=== PATIENT | female | born 1975 | race Caucasian/White ===

== ENCOUNTER 2016-12-18 11:45 | Outpatient (CLI) | payer OTHER ==
[2016-12-18] MEDS ORDERED: IOPAMIDOL-300 50 ML VIAL PO ONE (13:22)
[2016-12-18] MEDS ORDERED: IOPAMIDOL-300 100 ML VIAL IVP ONE (13:22)
--- NOTE | 2016-12-19 12:18 | CT Report ---
CT ABDOMEN AND PELVIS WITH AND WITHOUT CONTRAST: 12/18/2016 CLINICAL INDICATION: Followup splenic cyst. COMPARISON: 09/21/2015, 02/10/2015 TECHNIQUE: Axial CT images of the abdomen and pelvis were obtained prior to and following 100 mL of Isovue-300 intravenously. Oral contrast was also administered. In accordance with CT protocol optimization, one or more of the following dose reduction techniques w ere utilized for this exam: automated exposure control, adjustment of mA and/or KV based on patient size, or use of iterative reconstructive technique. FINDINGS: Limited evaluation of the lung bases is unremarkable. Abdomen: The 7-cm rim-calcified splenic cyst is stable. No new splenic lesion is seen. The liver, pancreas, kidneys, and adrenal glands are unremarkable. The gallbladder is not dilated. No bowel di latation, free gas, or free fluid is present. No abdominal adenopathy is seen. Pelvis: The pelvic organs appear unremarkable. Scattered diverticulosis is seen, without CT evidenc e of diverticulitis. No pelvic adenopathy or free fluid is present. Osseous structures demonstrate mild degenerative changes. IMPRESSION: STABLE SPLENIC CYST. NO SIGNIFICANT INTERVAL CHANGE. JOB #: [id number] EXT JOB #:[id number]
== END 2016-12-18 11:46 | disposition home or self-care (01) ==
LOC: DI 11:45
PROVIDERS: ATTEND Nurse Practitioner Family
DX: D73.4 Cyst of spleen (principal)
CPT/HCPCS: 74178; Q9967

== ENCOUNTER 2017-02-06 14:25 | Outpatient (CLI) | payer OTHER ==
[2017-02-06 15:03] LABS: BASOPHILS % (AUTO) 0.5 %; EOSINOPHILS # (AUTO) 0.2 10^3/uL (0.0-0.7); EOSINOPHILS % (AUTO) 2.1 %; HCT - HEMATOCRIT 40.3 % (37.0-47.0); HGB - HEMOGLOBIN 13.7 g/dL (12.0-16.0); LYMPHOCYTES # (AUTO) 2.2 10^3/uL (1.5-3.5); LYMPHOCYTES % (AUTO) 30.6 %; MEAN CORPUSCULAR HEMOGLOBIN 31.4 pg (27.0-31.0); MEAN CORPUSCULAR VOLUME 92.4 fL (81.0-99.0); MEAN PLATELET VOLUME 8.2 fL (7.9-10.8); MONOCYTES # (AUTO) 0.5 10^3/uL (0.0-1.0); MONOCYTES % (AUTO) 6.2 %; NEUTROPHILS # (AUTO) 4.4 10^3/uL (1.5-6.6); NEUTROPHILS % (AUTO) 60.6 %; NUCLEATED RED BLOOD CELLS AUTO 0.1 /100WBC; RED BLOOD COUNT 4.37 10^6/uL (4.20-5.40); UNCORRECTED WHITE BLOOD COUNT 7.3 x10^3/uL; WHITE BLOOD COUNT 7.3 x10^3/uL (4.8-10.8)
[2017-02-06 15:19] LABS: CALCIUM 9.5 mg/dL (8.5-10.3); CREATININE 0.9 mg/dL (0.4-1.0)
== END 2017-02-06 14:26 | disposition home or self-care (01) ==
LOC: LAB 14:25
PROVIDERS: ATTEND Surgery
DX: D73.4 Cyst of spleen (principal)
CPT/HCPCS: 36415; 80048; 85025

== ENCOUNTER 2017-02-08 13:04 | Outpatient (CLI) | payer OTHER | END 2017-02-08 13:05 | disposition home or self-care (01) | LOC: LAB 13:04 | PROVIDERS: ATTEND Surgery | DX: Z01.812 Encounter for preprocedural laboratory examination (principal); D73.4 Cyst of spleen | CPT/HCPCS: 86850; 86900; 86901 ==

== ENCOUNTER 2017-02-10 06:11 | Inpatient (IN) | payer OTHER ==
[2017-02-10] MEDS ORDERED: ceFAZolin 2 GM/50 ML 50 ML IV ONE (06:27)
[2017-02-10] MEDS ORDERED: LACTATED RINGERS 1,000 ML IV ONE ×3 (06:30→09:27)
[2017-02-10 06:48] LABS: HCG UR QUAL NEGATIVE
[2017-02-10] MEDS ORDERED: ACETAMINOPHEN 1,000 MG/100 ML VIAL IV ONE (08:00)
[2017-02-10] MEDS ORDERED: MIDAZOLAM 2 MG/2 ML VIAL IVP ONE (08:00)
[2017-02-10] MEDS ORDERED: PROPOFOL 200 MG/20 ML VIAL IVP ONE (08:00)
[2017-02-10] MEDS ORDERED: DEXAMETHASONE 4 MG/ML VIAL IVP ONE (08:00)
[2017-02-10] MEDS ORDERED: LIDOCAINE 2% 10 ML MDV SUBQ ONE (08:00)
[2017-02-10] MEDS ORDERED: ROPIVACAINE 0.5% PF 20 ML AMPULE EP ONE (08:00)
[2017-02-10] MEDS ORDERED: ROCURONIUM 50 MG/5 ML VIAL IVP ONE (08:00)
[2017-02-10] MEDS ORDERED: SUCCINYLCHOLINE 200 MG/10 ML VIAL IVP ONE (08:00)
[2017-02-10] MEDS ORDERED: fentaNYL 100 MCG/2 ML VIAL IVP ONE (08:00)
[2017-02-10] MEDS ORDERED: ONDANSETRON 4 MG/2 ML VIAL IVP ONE (08:00)
[2017-02-10] MEDS ORDERED: BUPIVACAINE 0.5%-EPI 1:200000 PF 30 ML VIAL SUBQ ONE ×2 (08:33→11:11)
[2017-02-10] MEDS ORDERED: fent/BUPIV 2 MCG/0.125% 250 ML EP ONE (09:07)
[2017-02-10] MEDS ORDERED: SODIUM CHLORIDE FLUSH 0.9% 10 ML SYRINGE IVP PRN (11:28)
--- NOTE | 2017-02-10 11:41 | OPERATIVE REPORT ---
Operative Report - General Procedure Date: 02/10/17 Planned Procedure: laparoscopic fenestration of splenic cyst Pre-Op Diagnosis: splenic cyst Post Op Diagnosis: splenic cyst - Procedure Note Primary Surgeon: Jane Secondary Surgeon: Michael Anesthesia Provider: Mackenzie Anesthesia Technique: Epidural, General ET tube Pathology: splenic cyst wall culture and sensitivity ova and parasites Estimated Blood Loss (in cc): 150 Drain/Tube Type: Kael drain (in splenic cyst) Complications: none
[2017-02-10 11:48] LABS: BASOPHILS # (AUTO) 0.1 10^3/uL (0.0-0.1); BASOPHILS % (AUTO) 0.3 %; EOSINOPHILS # (AUTO) 0.1 10^3/uL (0.0-0.7); EOSINOPHILS % (AUTO) 0.4 %; HCT - HEMATOCRIT 33.3 % (37.0-47.0); HGB - HEMOGLOBIN 11.1 g/dL (12.0-16.0); LYMPHOCYTES # (AUTO) 2.2 10^3/uL (1.5-3.5); LYMPHOCYTES % (AUTO) 12.5 %; MEAN CORPUSCULAR HEMOGLOBIN 30.9 pg (27.0-31.0); MEAN CORPUSCULAR HGB CONC 33.4 g/dL (32.0-36.0); MEAN CORPUSCULAR VOLUME 92.4 fL (81.0-99.0); MEAN PLATELET VOLUME 8.3 fL (7.9-10.8); MONOCYTES # (AUTO) 0.3 10^3/uL (0.0-1.0); NEUTROPHILS # (AUTO) 14.6 10^3/uL (1.5-6.6); NEUTROPHILS % (AUTO) 84.8 %; RED CELL DISTRIBUTION WIDTH 12.7 % (12.0-15.0); UNCORRECTED WHITE BLOOD COUNT 17.3 x10^3/uL; WHITE BLOOD COUNT 17.3 x10^3/uL (4.8-10.8)
[2017-02-10] MEDS: ONDANSETRON 4 MG/2 ML VIAL IVP PRN ×2 (11:55→20:02)
[2017-02-10] MEDS ORDERED: CYCLOBENZAPRINE 10 MG TABLET PO PRN (12:00)
[2017-02-10] MEDS ORDERED: METOCLOPRAMIDE 10 MG/2 ML VIAL ONE (12:11)
[2017-02-10] MEDS ORDERED: oxyCOD/ACETAMIN 5 MG/325 MG TABLET PO PRN (13:02)
--- NOTE | 2017-02-10 14:39 | OPERATIVE REPORT ---
DATE OF SURGERY: 02/10/2017 00:00:00 PREOPERATIVE DIAGNOSIS: Splenic cyst POSTOPERATIVE DIAGNOSIS: splenic cyst NAME OF PROCEDURE: Laparoscopic fenestration of splenic cyst SURGEON: Fidelina Lara MD CO-SURGEON: Juan C Rodriguez MD ANESTHESIA: Willam Mann CRNA INDICATIONS: This is a 41-year-old female who was diagnosed with a large 7 cm splenic cyst in 2014 after complaining of left upper quadrant pain. A percutaneous drainage procedure was performed at an outside hospital with minimal drainage of fluid and nonresolution of her symptoms and persistent cyst on CT scan. She has had multiple followup CT scans, which have demonstrated a stable 7 cm cyst; however, she continues to have left upper quadrant pain radiating to her left side and left upper back, which is moderate to severe in nature. She is here today for elective laparoscopic fenestration of splenic cyst. Prior to the procedure she received appropriate vaccinations in preparation for possible splenectomy. FINDINGS: After obtaining informed consent from the patient, she was brought into the operating room and positioned on the table in the right lateral decubitus position, taking note of pressure points. She was intubated by anesthesia. She was administered 2 g of Ancef. Type and cross was performed and 2 units of packed cells as well as 2 units of platelets were on hold in the blood bank. A Escudero catheter was inserted. She was then prepped and draped in the usual sterile fashion, and a timeout was taken according to protocol. Despite cleaning the umbilicus prior to prepping there was a large amount of debris in the umbilicus. This was removed with the mosquito device and the umbilicus was again prepped and the surgeon's gloves were changed. A supraumbilical 1 cm incision was then created and deepened down towards the umbilical stalk. An umbilical hernia was noted at this site and this was circumferentially dissected from the surrounding fascia. The fascia was bluntly entered with a tonsil clamp, and Scott port was then placed, and the abdominal cavity insufflated. An additional 5 mm port was placed in the left epigastric region and an additional 5 mm port placed in the midline epigastric region. The large spleen and splenic cyst were identified. The cyst was located in the superior posteromedial position. There were some filmy adhesions of the omentum to the left lateral abdominal wall, and these were taken down with the LigaSure device. Left lobe of the liver attachments to the diaphragm were also taken down with the LigaSure device to adequately expose the spleen. The patient was then positioned in reverse Trendelenburg with the left side rotated up. The splenic cyst was fully exposed. At this point, a drainage needle was placed into the center of the splenic cyst and attached to a Luki trap. The cyst was drained and fluid was collected to send for cultures and sensitivity as well as ova and parasite and cytology. Approximately 150 mL of purulent-appearing fluid was drained from the splenic cyst. The cyst was then carefully opened with the ligasure. In order to retract the slpeen an additional 12 mm port was placed in the left lateral subcostal region. It was somewhat difficult to get into the cystic cavity because it was noted to be very calcified and thickened. The anterior layer of the cyst was initially opened and cystic fluid drained. With some difficulty I eventually was able to enter into the full thickness of the cystic cavity using the hook device. The LigaSure was then utilized to transect portions of the splenic cyst towards the splenic parenchyma thereby creating a large defect in the splenic cyst. There was some bleeding during this part of the procedure, and this was controlled with electrocautery. A persistent area in the inferior aspect of the splenic cystic cavity continued to ooze slightly and the Surgicel was placed and pressure was held for a period of time. Upon removal of this Surgicel, the bleeding was mostly controlled but a very small amount of oozing was persistent. After complete evacuation of all the cystic contents and irrigation of the cyst cavity and the abdominal cavity, adequate visualization of the splenic cyst wall was achieved. Tisseel hemostatic agent was then placed in the areas of slight oozing around the cystic wall. Hemostasis was achieved at this point. A tongue of omentum was then mobilized and placed into the splenic cyst. This was sutured into place with 2 interrupted sutures of 0 Ethibond. The very superior aspect of the cystic cavity was left open for placement of a Kael drain into the cystic cavity. This was brought out through the lateral abdominal port site and was sutured into place. At this point the patient was leveled and the peritoneal cavity inspected for persistent hemoperitoneum and this was evacuated with the suction device. The abdominal cavity was then allowed to desufflate and all ports were removed. The umbilical hernia was then repaired by excising the hernia sac completely from the surrounding fascia and reducing the hernia back into the abdominal cavity. The umbilicus was then closed with an interrupted Vicryl suture as well as a [id number] 0 Vicryl suture to completely close the umbilical defect. The skin incisions were closed with 4-0 Monocryl. The Kael drain was sutured into place with 3-0 nylon. Dermabond was applied and a drain dressing applied. 30 mL of local anesthestic was utilized. ESTIMATED BLOOD LOSS: 150 mL. URINE OUTPUT: 150 mL. COMPLICATIONS: None. SPECIMEN: Cystic fluid and splenic cystic wall. JOB #: [id number] EXT JOB #:[id number] ASUNCION
[2017-02-10] MEDS ORDERED: PIPERACILLIN/TAZOBACTAM 3.375 GM in SODIUM CHLORIDE 0.9% MINIBAG 100 ML IV SCH (15:00)
[2017-02-10] MEDS ORDERED: ALBUTEROL NEB 2.5 MG/3 ML INH PRN (15:01)
[2017-02-10] MEDS: SODIUM CHLORIDE FLUSH 0.9% 10 ML SYRINGE IVP SCH ×2 (15:10→23:01)
[2017-02-10] MEDS: LACTATED RINGERS 1,000 ML IV SCH (15:13)
[2017-02-10] MEDS: ACETAMINOPHEN 1,000 MG/100 ML 100 ML IV SCH ×2 (15:14→20:02)
[2017-02-10] MEDS ORDERED: fent/BUPIV 2 MCG/0.125% 250 ML EP PRN (15:55)
[2017-02-10] MEDS ORDERED: ONDANSETRON 4 MG/2 ML VIAL IVP PRN (15:55)
[2017-02-10] MEDS ORDERED: diphenhydrAMINE INJ 50 MG/ML VIAL IV PRN (15:55)
[2017-02-10] MEDS ORDERED: NALBUPHINE 20 MG/ML AMP IVP PRN (15:55)
[2017-02-10] MEDS ORDERED: METOCLOPRAMIDE 10 MG/2 ML VIAL IVP PRN (15:55)
[2017-02-10] MEDS: metroNIDAZOLE 500 MG/100 ML 100 ML IV SCH ×2 (16:10→23:01)
[2017-02-11] MEDS: PIPERACILLIN/TAZOBACTAM 3.375 GM in SODIUM CHLORIDE 0.9% MINIBAG 100 ML IV SCH ×3 (00:52→12:28)
[2017-02-11] MEDS: ACETAMINOPHEN 1,000 MG/100 ML 100 ML IV SCH ×4 (02:05→13:14)
[2017-02-11] MEDS ORDERED: SODIUM CHLORIDE 0.9% 1,000 ML IV ONE (03:46)
[2017-02-11] MEDS: LACTATED RINGERS 1,000 ML IV SCH ×2 (04:08→08:58)
[2017-02-11] MEDS ORDERED: LORazepam 2 MG/ML SYRINGE IVP PRN (04:47)
[2017-02-11] MEDS ORDERED: LORazepam 2 MG/ML SYRINGE IVP SCH (05:00)
[2017-02-11] MEDS: metroNIDAZOLE 500 MG/100 ML 100 ML IV SCH ×2 (05:54→14:48)
[2017-02-11 06:02] LABS: BASOPHILS % (AUTO) 0.2 %; HCT - HEMATOCRIT 29.3 % (37.0-47.0); LYMPHOCYTES # (AUTO) 1.1 10^3/uL (1.5-3.5); LYMPHOCYTES % (AUTO) 11.4 %; MEAN CORPUSCULAR HEMOGLOBIN 32.1 pg (27.0-31.0); MEAN CORPUSCULAR HGB CONC 34.1 g/dL (32.0-36.0); MEAN CORPUSCULAR VOLUME 94.2 fL (81.0-99.0); MEAN PLATELET VOLUME 8.5 fL (7.9-10.8); MONOCYTES # (AUTO) 0.7 10^3/uL (0.0-1.0); MONOCYTES % (AUTO) 7.4 %; NEUTROPHILS # (AUTO) 7.7 10^3/uL (1.5-6.6); RED BLOOD COUNT 3.11 10^6/uL (4.20-5.40); RED CELL DISTRIBUTION WIDTH 13.2 % (12.0-15.0); UNCORRECTED WHITE BLOOD COUNT 9.5 x10^3/uL; WHITE BLOOD COUNT 9.5 x10^3/uL (4.8-10.8)
[2017-02-11 06:16] LABS: CALCIUM 7.9 mg/dL (8.5-10.3); CREATININE 0.8 mg/dL (0.4-1.0); POTASSIUM 3.7 mmol/L (3.5-5.0)
[2017-02-11] MEDS: SODIUM CHLORIDE FLUSH 0.9% 10 ML SYRINGE IVP SCH ×2 (06:29→14:53)
[2017-02-11] MEDS ORDERED: PANTOPRAZOLE 40 MG VIAL IVP SCH (07:00)
[2017-02-11] MEDS: ONDANSETRON 4 MG/2 ML VIAL IVP PRN ×2 (07:41→13:12)
--- NOTE | 2017-02-11 08:46 | PROVIDER PROGRESS NOTE ---
Subjective - General Admit Date: 02/10/17 Procedure Date: 02/10/17 Post Op Days: 1 Procedure Performed: laparoscopic fenestration of splenic cyst - Review of Systems Wound/Incisions: positive: Healing well Drain Type: sunita Drain Output Description: 140 cc serosanguinous - Other Other Information/Narrative: Patient became very anxious overnight due to numbness in her legs secondary to epidural. She had a panic attack and ativan was given. She feels a bit distended today but denies nausea. Objective - Patient Data Reviewed Vital Signs: Yes Vital Signs: Vital Signs x48h Temp Pulse Pulse Resp BP BP Pulse Ox 02/11/17 07:58 36.7 C 88 18 111/60 93 02/11/17 07:45 76 16 02/11/17 05:37 36.5 C 76 16 121/72 97 02/11/17 02:01 36.6 C 70 16 108/63 100 Intake & Output: Intake and Output Totals x24h 02/09/17 02/10/17 02/11/17 23:59 23:59 23:59 Intake Total 3599 Output Total 270 1020 Balance 3329 -1020 - Lab Results Lab Results: 02/11/17 05:18 02/11/17 05:18 Other Lab Results: Lab Results x24hrs 02/11/17 02/11/17 02/10/17 Range/Units 05:18 05:18 11:44 WBC 9.5 17.3 H (4.8-10.8) x10^3/uL RBC 3.11 L 3.60 L (4.20-5.40) 10^6/uL Hgb 10.0 L 11.1 L (12.0-16.0) g/dL Hct 29.3 L 33.3 L (37.0-47.0) % MCV 94.2 92.4 (81.0-99.0) fL MCH 32.1 H 30.9 (27.0-31.0) pg MCHC 34.1 33.4 (32.0-36.0) g/dL RDW 13.2 12.7 (12.0-15.0) % Plt Count 175 267 (130-450) 10^3/uL MPV 8.5 8.3 (7.9-10.8) fL Neut # 7.7 H 14.6 H (1.5-6.6) 10^3/uL Lymph # 1.1 L 2.2 (1.5-3.5) 10^3/uL Eagle # 0.7 0.3 (0.0-1.0) 10^3/uL Eos # 0.0 0.1 (0.0-0.7) 10^3/uL Baso # 0.0 0.1 (0.0-0.1) 10^3/uL Absolute Nucleated RBC 0.00 0.00 x10^3/uL Nucleated RBCs 0.0 0.0 /100WBC Sodium 135 (135-145) mmol/L Potassium 3.7 (3.5-5.0) mmol/L Chloride 103 (101-111) mmol/L Carbon Dioxide 23 (21-32) mmol/L Anion Gap 9.0 (6-13) BUN 9 (6-20) mg/dL Creatinine 0.8 (0.4-1.0) mg/dL Estimated GFR (MDRD) 78 L (>89) Glucose 132 H (70-100) mg/dL Calcium 7.9 L (8.5-10.3) mg/dL Blood Type Antibody Screen Crossmatch IS Only 02/08/17 Range/Units 13:15 WBC (4.8-10.8) x10^3/uL RBC (4.20-5.40) 10^6/uL Hgb (12.0-16.0) g/dL Hct (37.0-47.0) % MCV (81.0-99.0) fL MCH (27.0-31.0) pg MCHC (32.0-36.0) g/dL RDW (12.0-15.0) % Plt Count (130-450) 10^3/uL MPV (7.9-10.8) fL Neut # (1.5-6.6) 10^3/uL Lymph # (1.5-3.5) 10^3/uL Eagle # (0.0-1.0) 10^3/uL Eos # (0.0-0.7) 10^3/uL Baso # (0.0-0.1) 10^3/uL Absolute Nucleated RBC x10^3/uL Nucleated RBCs /100WBC Sodium (135-145) mmol/L Potassium (3.5-5.0) mmol/L Chloride (101-111) mmol/L Carbon Dioxide (21-32) mmol/L Anion Gap (6-13) BUN (6-20) mg/dL Creatinine (0.4-1.0) mg/dL Estimated GFR (MDRD) (>89) Glucose (70-100) mg/dL Calcium (8.5-10.3) mg/dL Blood Type Cancelled Antibody Screen Cancelled Crossmatch IS Only See Detail - Current Medications Current Medications: Current Medications Generic Name Dose Route Start Last Admin Trade Name Freq PRN Reason Stop Dose Admin Metronidazole 100 mls @ 100 mls/hr 02/10/17 14:00 02/11/17 05:54 Flagyl 500 Mg/100 Ml IV 100 mls/hr Q8HR KIT Administration Acetaminophen 100 mls @ 400 mls/hr 02/10/17 12:00 02/11/17 02:05 Ofirmev IV 400 mls/hr Q6H KIT Administration Fentanyl/Bupivacaine/Sodium Chlor 250 mls @ 10 mls/hr 02/10/17 15:55 02/11/17 07:49 Fent/Bupiv 2 Mcg/0.125% EP 10 mls/hr .Q25H PRN Administration PAIN Protocol Piperacillin Sod/Tazobactam 100 mls @ 200 mls/hr 02/11/17 00:00 02/11/17 06:56 Sod 3.375 gm/ Sodium Chloride IV 200 mls/hr Q6HR KIT Administration Ondansetron HCl 4 mg 02/10/17 11:28 02/11/17 07:41 Zofran Inj IVP 4 mg Q6H PRN Administration Nausea / Vomiting Pantoprazole Sodium 40 mg 02/11/17 07:00 02/11/17 06:07 Protonix IVP 40 mg QDAC KIT Administration Sodium Chloride 10 ml 02/10/17 14:00 02/11/17 06:29 Normal Saline Flush 0.9% IVP Not Given Q8HR KIT - Physical Exam Wound/Incisions: positive: Healing well, No drainage General Appearance: positive: No acute distress Respiratory: positive: No respiratory distress Cardiovascular: positive: Regular rate & rhythm Abdomen: positive: Other (soft, slightly distended. Sunita drain in place with serosanguinous drainage) Extremities: positive: No pedal edema Neurologic/Psychiatric: positive: Oriented x3 Impression/Plan - Problem List Problem List: s/p laparoscopic splenic fenestration POD 1 - DC epidural. Percocet for pain control - once epidural has worn off ambulate - advance to regular diet. Informed patient to take this slowly. - GINGER teaching for plan to DC to home with GINGER in place. - Con't antibiotics until cultures back. Will plan to DC with antibiotics for 5 days due to purulent appearance of cyst contents
[2017-02-11] MEDS ORDERED: DOCUSATE SODIUM 250 MG CAPSULE PO SCH (09:00)
[2017-02-11] MEDS ORDERED: FLUoxetine 10 MG CAPSULE PO SCH (09:00)
[2017-02-11] MEDS ORDERED: POLYETHYLENE GLYCOL 3350 17 GM PACKET PO SCH (09:00)
[2017-02-11] MEDS: oxyCOD/ACETAMIN 5 MG/325 MG TABLET PO PRN ×3 (09:21→16:56)
--- NOTE | 2017-02-11 12:19 | Discharge Plan ---
Discharge Plan Disposition: 01 Home, Self Care Condition: Good Prescriptions: Metronidazole [Flagyl] 500 mg PO TID #15 tablet Cephalexin [Keflex] 500 mg PO BID #10 capsule Ondansetron Odt [Zofran Odt] 4 mg TL Q6H PRN #10 tablet PRN Reason: Nausea / Vomiting Activity Restrictions: Additional Comments (no strenusous activity 2 weeks) Shower Restrictions: Yes (no tub bathing one week) Driving Restrictions: Yes (not while on narcotics) Instruction Topics: Ondansetron tablets, Docusate capsules, Metronidazole tablets or capsules, Cephalexin tablets or capsules, Acetaminophen Oxycodone tablets, Tube Dante Cote Drainage Care Additional Instructions or Follow Up instructions: No strenuous activity or lifting > 10 lbs for 2 weeks. No tub bathing 1 week. OK to shower and get incisions wet. Pat to dry. Regular diet as tolerated. Take stool softeners while on narcotics. You have been prescribed 5 days of antibiotics. Take these until completed. Call Dr. Lara for worsening abdominal pain, redness around incision or drain, drainage of more than 200cc per day from drain fever or chills. Monitor and record GINGER drain output daily. place dry gauze around drain and changed daily. It is OK to get drain wet in shower. Keep incisions clean and dry. It is OK to get incisions wet in shower. No Smoking: If you smoke, Please STOP! Call for help. Follow-up with: Ana Laura Toney ARNP [Primary Care Provider] - ANAND LARA MD [Provider Admit Priv/Credential] - 1 Week
[2017-02-11 15:49] VITALS: BP 129/71
--- NOTE | 2017-02-12 12:30 | DISCHARGE SUMMARY ---
DATE OF ADMISSION: 02/10/2017 DATE OF DISCHARGE: 02/11/2017 REASON FOR ADMISSION: Status post laparoscopic fenestration of splenic cyst. HOSPITAL COURSE: This is a 41-year-old female who had a 7 cm splenic cyst that was painful and presented for elective laparoscopic fenestration of the splenic cyst. The surgery went without complications. She was transferred to the floor postoperatively with a GINGER drain in place and an epidural catheter in place for pain control. She was also placed on IV antibiotics given that the cyst was noted to contain purulent-appearing fluid and there was concern for an ensuing infection. She was started on clear liquids on postoperative day 0 and encouraged to ambulate. On the night of postoperative day 0 she was unable to feel her legs secondary to her epidural and the following morning this was completely stopped. She eventually was able to get out of bed and walk and was able to urinate on her own. She was advanced to a regular diet. Her epidural was removed. Her H and H was noted to be stable postoperatively. Her GINGER drain was draining serosanguineous fluid and her vital signs remained stable. She was stable for discharge on postoperative day 1 with her GINGER drain in place. She was instructed on how to care for her GINGER drain as well as how to empty and monitor the drainage amount. She was instructed to follow up with myself, Dr. Lara , in one week for possible drain removal if the output was low enough. She was instructed to call sooner should she develop any fevers, chills, redness around her incision or her GINGER site, or increasing lightheadedness or fatigue. She was discharged with prescriptions for pain control medications, Colace, Keflex and Flagyl for 5 days and Zofran for nausea which was associated with the pain medications. PHYSICAL EXAMINATION ON DISCHARGE: VITAL SIGNS: 36.7 temperature, heart rate of 96, respiratory rate of 16, O2 saturation 92% on room air. Blood pressure 129/71. GENERAL: She was awake, alert, oriented x3 in no acute distress. She was of average build. CARDIOVASCULAR: Regular rate and rhythm. CHEST: Clear to auscultation bilaterally with no rhonchi or wheezing. ABDOMEN: Soft, and nondistended. Her incisions are clean, dry and intact. GINGER is in place with serosanguineous drainage and is mildly tender to palpation. EXTREMITIES: Are nonedematous. JOB #: [id number] EXT JOB #:[id number] ASUNCION
== END 2017-02-11 19:00 | disposition home or self-care (01) | DRG 983 ==
LOC: SDS 06:11 → MS3 11:28 → SDS 19:27
PROVIDERS: ADMIT Surgery; ATTEND Surgery
PROC: 0FBG4ZZ Excision of Pancreas, Percutaneous Endoscopic Approach (ICD-10-PCS; principal; 2017-02-10 07:30)
DX: D73.4 Cyst of spleen (principal); I10 Essential (primary) hypertension; F41.0 Panic disorder [episodic paroxysmal anxiety]; F32.9 Major depressive disorder, single episode, unspecified; Z79.51 Long term (current) use of inhaled steroids; Z79.899 Other long term (current) drug therapy
CPT/HCPCS: 36415; 51701; 80048; 81025; 85025; 86850; 86900; 86901; 86920; 87070; 87205; 88108; 88305

== ENCOUNTER 2019-01-21 11:27 | Outpatient (CLI) | payer OTHER ==
--- NOTE | 2019-01-21 19:00 | Ultrasound Report ---
Reason: ABDOMINAL PAIN, LUQ Procedure Date: 01/21/2019 Accession Number: [id number] / [id number] Procedure: US - Abdomen Limited CPT Code: FULL RESULT: EXAM: ABDOMEN ULTRASOUND LIMITED, RUQ EXAM DATE: 01/21/2019 12:15 PM. CLINICAL HISTORY: ABDOMINAL PAIN, LUQ. COMPARISON: ABDOMEN/PELVIS W/WO 12/18/2016 1:19 PM. TECHNIQUE: Real-time scanning was performed with static images obtained. FINDINGS: Left Upper Quadrant: There is a heterogeneous/complex cystic, avascular lesion in the inferior splenic parenchyma measuring 5.1 x 2.9 x 4.5 cm. Similar cyst on previous CT scan measured 6.8 x 6.8 cm dated 12/18/2016. Overall interval reduction in size of the cyst. Sonographic tenderness elicited at the time of scanning. Splenic dimensions: 10.1 cm in long axis by 3.3 cm AP.. IMPRESSION: Heterogeneous complex cystic avascular lesion in inferior splenic parenchyma measuring 5.1 x 2.9 x 4.5 cm. Overall reduction in size since CT dated 12/18/2016. RADIA
== END 2019-01-21 11:28 | disposition home or self-care (01) ==
LOC: DI 11:27
PROVIDERS: ATTEND Registered Nurse
DX: R10.12 Left upper quadrant pain (principal); D73.4 Cyst of spleen
CPT/HCPCS: 76705

== ENCOUNTER 2019-04-02 07:30 | Inpatient (IN) | payer OTHER ==
[2019-04-09] MEDS ORDERED: LACTATED RINGERS 1,000 ML IV ONE ×2 (06:31→09:12)
[2019-04-09] MEDS ORDERED: CEFAZOLIN SODIUM IN 0.9 % NACL 2 GM/100 ML BAG IV ONE (06:38)
--- NOTE | 2019-04-09 07:11 | ANESTHESIA ---
Pre-Anesthesia VS, & Labs - Diagnosis Splenic cyst - Procedure Splenectomy Vital Signs: Temp Pulse Resp BP Pulse Ox 36.3 C L 78 14 142/67 H 99 04/09/19 06:43 04/09/19 06:43 04/09/19 06:43 04/09/19 06:43 04/09/19 06:43 Height 5 ft 7 in Weight (kg) 79.1 kg Body Mass Index 25.0 - NPO >8 hours - Is Patient ?: No - Lab Results Lab results reviewed: Yes Home Medications and Allergies Home Medications: Ambulatory Orders Beclomethasone Dipropionate [Qvar Redihaler (40 mcg)] 1 inh IH BID 04/07/19 Clindamycin Phosphate 1 applic TP BID 04/07/19 FLUoxetine [PROzac] 20 mg PO DAILY 04/07/19 l-Norgest/E.estradiol-E.estrad [Camrese 0.15-0.03-0.01 mg Tab] 1 each PO DAILY 04/07/19 Albuterol Sulfate [Ventolin Hfa] 1 puffs INH Q4HR PRN 05/24/15 Beclomethasone Dipropionate [Qvar Redihaler (40 mcg)] 1 inh IH BID 04/07/19 Clindamycin Phosphate 1 applic TP BID 04/07/19 FLUoxetine [PROzac] 20 mg PO DAILY 04/07/19 l-Norgest/E.estradiol-E.estrad [Camrese 0.15-0.03-0.01 mg Tab] 1 each PO DAILY 04/07/19 Allergies/Adverse Reactions: Allergies Allergy/AdvReac Type Severity Reaction Status Date / Time No Known Drug Allergies Allergy Verified 04/09/19 06:50 Anes History & Medical History - Anesthetic History Anesthesia Complications: reports: No previous complications Family history of Anesthesia Complications: Denies Family history of Malignant Hyperthermia: Denies - Medical History Cardiovascular: reports: None Pulmonary: reports: Asthma Gastrointestinal: reports: GERD Urinary: reports: None Neuro: reports: None Musculoskeletal: reports: None Endocrine/Autoimmune: reports: None Blood Disorders: reports: None Skin: reports: None Smoking Status: Never smoker Psychosocial: reports: No issues indicated Exam General: Alert, Oriented x3 Dental: WNL Mouth Opening: Greater than 4 Fingerbreadths Neck Mobility: Normal Mallampati classification: II Thyromental Distance: greater than 6 cm Respiratory: Lungs clear Cardiovascular: Regular rate, Normal S1, Normal S2 Mental/Cognitive Status: Alert/Oriented X3 Cognitive Status: Within normal limits Plan Anesthesia Type: General, Epidural Consent for Procedure(s) Verified and Reviewed: Yes Code Status: Attempt Resuscitation ASA classification: 2-Mild systemic disease Is this case an emergency?: No
[2019-04-09 07:21] LABS: HCG UR QUAL NEGATIVE
--- NOTE | 2019-04-09 08:26 | SURGERY HX AND PHYSICAL(T) ---
Surgical History & Physical - PMH/PSH/Social Hx Does the pt have a hx of MRSA?: No Neurological History: None Eyes, Ears, Nose, Throat: Chronic vision loss Cardiovascular: None Respiratory: Asthma Skin: None Endocrine/Autoimmune: None Gastrointestinal: GERD Urinary: None Musculoskeletal: None Blood Disorders: None Psychiatric: Depression, Anxiety, Panic attacks, Obsessive compulsive disorder Smoking Status: Never smoker Does the pt drink ETOH?: No Does the pt have substance abuse?: No - Home Meds and Allergies Home Medications: Albuterol Sulfate [Ventolin Hfa] 1 puffs INH Q4HR PRN 05/24/15 Beclomethasone Dipropionate [Qvar Redihaler (40 mcg)] 1 inh IH BID 04/07/19 Clindamycin Phosphate 1 applic TP BID 04/07/19 FLUoxetine [PROzac] 20 mg PO DAILY 04/07/19 l-Norgest/E.estradiol-E.estrad [Camrese 0.15-0.03-0.01 mg Tab] 1 each PO DAILY 04/07/19 Allergies/Adverse Reactions: Allergies Allergy/AdvReac Type Severity Reaction Status Date / Time No Known Drug Allergies Allergy Verified 04/09/19 06:50 - Vital Signs Heart Rate: 78 Blood Pressure: 142/67 Temperature: 36.3 C Respiratory Rate: 14 O2 Saturation: 99 Weight (kg): 79.1 kg Height: 1.7 m - Patient Review Patient Review: Problems were reviewed with the patient during this visit. Medications were reviewed with the patient during this visit. Allergies were reviewed this patient during this visit. Pertinent Tests Reviewed: All pertitent test for this patient were reviewed. - Assessment & Plan Assessment and Plan: This exceedingly pleasant 43-year-old female presents to [facility]'s home day care provider unit this morning for a splenectomy. The patient was initially seen by myself as well as Dr. Lara back couple of years ago for a splenic cyst which was symptomatic. In January 2017 Dr. Lara performed a D fenestration with me as the web assistant. The symptoms at that time were abdominal pain and left upper quadrant pain and the patient's symptoms have persisted despite the cyst being demonstrably smaller in size. The patient saw me February 17 of this year asking that I remove her spleen to treat her abdominal pain. We had an extensive discussion at that time and I explained that removal of her spl een may not resolve all of her abdominal symptoms. The pain is still described as sharp and shooting. The operation was initially scheduled within the 30-day. Following the history and physical but for reasons unknown to me the surgery was rescheduled to today, exceeding the 30-day allowance following the history and physical. The patient states that since she last saw me there have been no new medications and she has not stopped any of her medications. She has not developed any new allergies. She has not been hospitalized. No new diagnoses have been made. In short, the patient states nothing has changed. Current Allergies: No Known Allergies Current Meds: MONTELUKAST SODIUM 10 MG ORAL TABLET (MONTELUKAST SODIUM) Take one tablet by mouth once daily for allergies or asthma; Route: ORAL QVAR REDIHALER 40 MCG/ACT INHALATION AEROSOL BREATH ACTIVATE (BECLOMETHASONE DIPROP HFA) Inhale one actuation twice daily, rinse mouth after use; Route: INHALATION FLOVENT HFA 110 MCG/ACT INHALATION AEROSOL (FLUTICASONE PROPIONATE HFA) Inhale two actuations twice daily. Rinse mouth out with water after each use; Route: INHALATION CAMRESE 0.15-0.03 &0.01 MG ORAL TABLET (LEVONORGEST-ETH ESTRAD ) TAke one tablet by mouth daily; Route: ORAL [BMN] CYCLOBENZAPRINE HCL 10 MG TABS (CYCLOBENZAPRINE HCL) take 1 tablet by mouth once daily as directed VENTOLIN HFA 108 (90 BASE) MCG/ACT AERS (ALBUTEROL SULFATE) inhale 1 to 2 puffs by mouth every 4 to 6 hours if needed CLINDAMYCIN PHOSPHATE 1 % SOLN (CLINDAMYCIN PHOSPHATE) apply to affected area twice a day TO CLEAN FACE FLUOXETINE HCL 10 MG CAPS (FLUOXETINE HCL) take 2 capsules by mouth once daily; Route: ORAL Current Problems: Urticaria (ICD-708.9) (XTJ56-D69.9) Splenic cyst (ICD-289.59) (CDD51-Q45.4) PTSD (ICD-309.81) (GSR09-L92.10) Abdominal pain, LUQ (ICD-789.02) (DIF05-C04.12) Depression / anxiety (ICD-300.4) (CYH03-D11.8) Asthma, with acute exacerbation (ICD-493.92) (CVC11-X20.901) Sinusitis - acute (ICD-461.9) (SHZ16-B60.90) Pain in left shoulder (ICD-719.41) (ZPU66-Y49.512) Other specified irregular menstruation (IIC43-I88.5) Hyperlipidemia (ICD-272.4) (MII44-W72.5) Abnormal cervical Pap ASCUS (atypical squamous cells undetermined significance) (ICD-795.01) (RDD27-B91.610) Obsessive-compulsive disorder (ICD-300.3) (SLW76-G53) Seasonal allergies (ICD-477.9) (QZE70-R97.2) Constipation, unspecified (ICD-564.00) (YMX80-F97.00) Acne (ICD-706.1) (RQL11-O02.9) Past Medical History: Abnormal cervical Pap ASCUS (atypical squamous cells undetermined significance) (ICD-795.01) (TAP80-O89.610) Splenic cyst (ICD-289.59) (EGJ48-X76.4) Acne (ICD-706.1) (UXH70-R61.9) Hyperlipidemia (ICD-272.4) (NGK77-T22.5) Obsessive-compulsive disorder (ICD-300.3) (DXA73-B50) Asthma, exercise induced (ICD-493.81) (NNQ19-I42.990) Seasonal allergies (ICD-477.9) (PTQ36-M22.2) Past Surgical History: Splenic cyst removal 01/2017. Family History Summary: Family History of High Cholesterol for Mother - Entered On: 07/12/2016 Family History of a Hx of Other Cancer for Mother, skin CA - Entered On: 03/08/2015 Family History of a mother who is alive and well for Mother - Entered On: 07/12/2016 Family History of High Cholesterol for Father - Entered On: 07/12/2016 Family History of a Hx of Hypertension for Father - Entered On: 03/08/2015 Family History of a father who is alive and well for Father - Entered On: 07/12/2016 Social History Summary: Patient has never smoked. Patient has never used smokeless tobacco. Passive Smoke: Y Alcohol Use: Y Drug Use: N HIV/High Risk: N Regular Exercise: Y Review of Systems CONSTITUTIONAL: No weight loss, fever, chills, weakness, or fatigue. HEENT: Eyes: No visual loss, blurred vision, double vision or yellow sclerae. Ears, Nose, Throat: No hearing loss, sneezing, congestion, runny nose, or sore throat. SKIN: No rash or itching. RESPIRATORY: No shortness of breath, cough or sputum. GASTROINTESTINAL: No anorexia, nausea, vomiting or diarrhea. No abdominal pain or blood. GENITOURINARY: No dysuria. Not . NEUROLOGICAL: No headache, dizziness, syncope, paralysis, ataxia, numbness or tingling in the extremities. No change in bowel or bladder control. MUSCULOSKELETAL: No muscle, back pain, joint pain or stiffness. HEMATOLOGIC: No anemia, bleeding or bruising. LYMPHATICS: No enlarged nodes. No history of splenectomy. HX SPLENIC CYST. PSYCHIATRIC: HX DEPRESSION AND ANXIETY. ENDOCRINOLOGIC: No reports of sweating, cold or heat intolerance. No polyuria or polydipsia. ALLERGIES: No history of hives or eczema. HX OF ASTHMA AND SEASONAL ALLERGIES. Physical Exam General: 43 year old female, appears stated age, well developed, obese. Loulou uated in [facility]'s home day care provider unit room 8 in the presence of her family. HEENT: Normocephalic, atraumatic, extraocular movement intact, mucous membranes pink and moist, sclera anicteric and not injected Neck: Supple without pain on palpation, mass or bruit Cardiac: Regular rate and rhythm without rub, gallop, or murmur Chest: Clear to auscultation bilaterally Abdomen: Soft, nontender, normoactive bowel sounds, no hepatomegaly, no splenomegaly Genitourinary: Deferred Rectal: Deferred Extremities: No gross neurovascular problem, no clubbing, cyanosis or edema Gait: Not reevaluated as the patient was on the gurney. Psychiatric: Alert and oriented to person place and time, asks and answers questions appropriately, mood and affect appropriate Impression & Recommendations: Persistent symptomatic splenic cyst. Open splenectomy. In the office, the indications, procedure, alternatives including no surgery, and possible risks including infection (deep, superficial, and remote (OPSS)), bleeding requiring transfusion with all of its risks, injury to surrounding organs requiring repair and additional surgery, and were fully explained to the patient and all questions were answered. I asked the patient again today if she had any additional questions and she stated that she did not. I reiterated the fact that I do not want her lifting anything heavier than 15 pounds for approximately 6 weeks to allow for optimal healing and decrease likelihood that hernia would recur. Verbal and written consent has been obtained. The patient indicates that she wishes to proceed with surgery. Preoperatively she will have teds and Venodyne's placed for prophylax against deep venous thrombosis. Preoperatively she received antibiotics for prophylax against surgical infection. Of asked her to let us know if there is any way we can make her stay here at [facility] more comfortable and she stated that she would let us know. Please note that she has received her immunizations to decrease the risk of OPSS. 30 minutes of [id number] time was spent with the patient, almost all in explanation and discussion, coordination of their care and completion of the requisite paperwork Dragon disclaimer: This document was created in part using voice recognition technology. Because of the inherent limitations of the system ([employer] user manual states that the licensee understands that speech recognition is a statistical process and that recognition errors are inherent in the process), occasional same sounding word substitutions and grammatical errors do occur and persist despite proofreading. Please read this document for context.
[2019-04-09] MEDS ORDERED: diphenhydrAMINE INJ 50 MG/ML VIAL IVP PRN (10:18)
[2019-04-09] MEDS ORDERED: NALBUPHINE 10 MG/ML AMP IVP PRN (10:18)
[2019-04-09] MEDS: ONDANSETRON 4 MG/2 ML VIAL IVP PRN ×3 (10:25→14:46)
[2019-04-09] MEDS ORDERED: fentaNYL 100 MCG/2 ML VIAL ONE (10:25)
[2019-04-09] MEDS ORDERED: ONDANSETRON 4 MG/2 ML VIAL ONE (10:35)
--- NOTE | 2019-04-09 10:52 | OPERATIVE REPORT ---
Operative Report - General Admit Date: 04/09/19 Planned Procedure: Splenectomy Pre-Op Diagnosis: Recurrent persistent symptomatic splenic cyst Procedure Performed: Splenectomy with mobilization of splenic flexure (colon) Post Op Diagnosis: Same - Procedure Note Primary Surgeon: Juan C Rodriguez MD Secondary Surgeon: Zane Fiore MD Anesthesia Provider: Janes Dick CRNA Anesthesia Technique: Epidural (Thoracic), General ET tube IV Fluids (mL): 1,400 Estimated Blood Loss (mL): 200 Urine Output (mL): 150 Drain/Tube Type: Kael drain (19 Israeli Kael drain placed transcutaneously at the tail of the pancreas and splenic fossa) Complications: None. - Other Other Information/Narrative: OPERATIVE DESCRIPTION/REPORT: After verbal and written informed consent was obtained detailing the risks of infection, bleeding requiring transfusion with its risks, nerve injury, and , and after I met with the patient confirming the surgery and the site of the surgery, the patient was brought to the operative suite and placed supine on the operating table. Great care was taken to avoid pressure points to prevent pressure necrosis or nerve injury. Monitoring devices were applied along with TEDs and pneumatic compressive stockings (to prevent DVT). The patient received preoperative antibiotics for surgical prophylaxis. [anesthesiologist] sedated and anesthetized the patient for the entire procedure. The patient was prepped and draped in the usual sterile manner. With the patient draped my initials were clearly visible. A "time in" then confirmed that the patient was identified with 3 identifiers (name, date and medical record number), the history and physical was in the chart, the signed consent confirming the proce dure was in the chart, the patient was in the correct position, the aforementioned prophylactic measures were in place or given, we had the correct personel and equipment to complete the procedure and that anesthesia, surgery and nursing were given an opportunity to express any concerns. With the agreement of everyone in the room, we proceeded with the operation. An upper midline incision was made extending from the xiphoid to the umbilicus. Sharp dissection utilizing scalpel was used to get down to the linea alba. Hemostasis was obtained using Bovie electrocautery. The linea alba was incised as was the peritoneum gaining entry into the abdomen without incident. Cursory exploration of the abdomen revealed that the immediately visible liver stomach colon and small bowel were normal. The Bookwalter retractor was placed for retraction. Adhesions from the previous operation were immediately apparent especially omentum which was used to pack the splenic cyst and these adhesions were either taken down using Metzenbaum scissors or where it was clear that the adhesions would need to be taken as part of the resection, serial application of the LigaSure. The greater curvature of the stomach was mobilized medially and the short gastrics were taken using serial application of the LigaSure. The attachment of the colon to the left upper quadrant was freed starting at the white line of Toldt laterally and mobilizing the colon in a lateral to medial direction using a combination of Bovie electrocautery as well as LigaSure. In this manner, the inferior lateral aspect of the spleen was visualized and laterally there were not many adhesions. This however was not the case superiorly and medially where the splenic cyst had been fenestrated. I was able to place my hand behind the spleen and with a gentle lateral to medial traction I was able to see these adhesions. These adhesions to the diaphragm were taken either using Bovie electrocautery with an elementary art teacher or LigaSure. Now the only thing holding the spleen in place were the splenic artery and veins at the hilum. The spleen was now rotated out of the left upper quadrant and lap sponges were placed behind the spleen in the left upper quadrant one for hemostasis and two keep the spleen down into the operative field. The splenic artery was doubly ligated proximally with 2-0 silk and ligated singly distally with 2-0 silk. A 2-0 silk suture ligature was also placed for additional hemostatic insurance. The splenic venous arcade was similarly ligated. Small branches were addressed using the LigaSure. With the hilum transected, the spleen was delivered from the operative field. The operative field was examined for hemostasis. The pancreas was examined as well as the hilum of the spleen and no injury to the pancreas was noted but due to an abundance of caution on my part I decided to place a 19 Israeli Kael drain through a separate stab incision directing the drain to the tail of the pancreas and into the left upper quadrant and securing the drain to the skin with a 3-0 nylon which was Felice sandaled about the drain. Visual examination of the abdomen failed to reveal any injury to the colon, stomach, or liver. The abdomen was copiously irrigated with warm sterile saline. The fascia was approximated using a 0-looped PDS starting superiorly and inferiorly and running the suture to meet in the middle. The subcutaneous tissues were copiously irrigated with warm sterile saline. The skin incision was approximated with absorbable subcuticular skin jacey. The drain was placed to grenade suction and a dressing was placed on the wound. At this point a time out was performed that confirmed that all the counts were correct, the procedure that was performed, the blood loss, the urine output, the IV fluids administered, and the patients condition. Having tolerated the procedure well, the patient was subsequently extubated and taken to recovery room in good and stable condition. Contur disclaimer: This document was created in part using voice recognition technology. Because of the inherent limitations of the system ([employer] D[employer] user manual states that the licensee understands that speech recognition is a statistical process and that recognition errors are inherent in the process), occasional same sounding word substitutions and grammatical errors do occur and persist despite proofreading. Please read this document for context. DRAFT DRAFT DRAFT DRAFT DRAFT DRAFT DRAFT DRAFT DRAFT DRAFT DRAFT DRAFT DRAFT DRAFT
[2019-04-09] MEDS ORDERED: METOCLOPRAMIDE 10 MG/2 ML VIAL ONE (10:56)
[2019-04-09] MEDS: ROPIVACAINE 0.2% 200 MG/100 ML BAG EP PRN ×2 (12:01→22:19)
[2019-04-09] MEDS: PANTOPRAZOLE 40 MG VIAL IVP SCH (12:14)
[2019-04-09] MEDS: LACTATED RINGERS 1,000 ML IV SCH (12:15)
[2019-04-09] MEDS: ACETAMINOPHEN 1,000 MG/100 ML 100 ML IV SCH ×3 (12:15→23:56)
[2019-04-09] MEDS: SODIUM CHLORIDE FLUSH 0.9% 10 ML SYRINGE IVP SCH ×2 (18:19→23:59)
[2019-04-09] MEDS: CYCLOBENZAPRINE 10 MG TABLET PO PRN (21:13)
[2019-04-09] MEDS: MONTELUKAST 10 MG TABLET PO SCH (21:15)
[2019-04-09] MEDS: CLINDAMYCIN PHOSPHATE TP SCH (21:15)
[2019-04-10] MEDS: ONDANSETRON 4 MG/2 ML VIAL IVP PRN ×4 (04:03→21:39)
[2019-04-10] MEDS: ACETAMINOPHEN 1,000 MG/100 ML 100 ML IV SCH ×4 (06:21→23:59)
[2019-04-10 06:23] LABS: BASOPHILS % (AUTO) 0.2 %; EOSINOPHILS # (AUTO) 0.1 10^3/uL (0.0-0.7); EOSINOPHILS % (AUTO) 0.4 %; HGB - HEMOGLOBIN 8.8 g/dL (12.0-16.0); LYMPHOCYTES # (AUTO) 1.4 10^3/uL (1.5-3.5); MEAN CORPUSCULAR HEMOGLOBIN 29.2 pg (27.0-31.0); MEAN CORPUSCULAR HGB CONC 32.4 g/dL (32.0-36.0); MEAN CORPUSCULAR VOLUME 90.4 fL (81.0-99.0); MEAN PLATELET VOLUME 9.6 fL (7.9-10.8); MONOCYTES # (AUTO) 1.2 10^3/uL (0.0-1.0); MONOCYTES % (AUTO) 9.4 %; NEUTROPHILS # (AUTO) 9.9 10^3/uL (1.5-6.6); NEUTROPHILS % (AUTO) 78.4 %; PLT - PLATELET COUNT 262 10^3/uL (130-450); RED BLOOD COUNT 3.01 10^6/uL (4.20-5.40); RED CELL DISTRIBUTION WIDTH 15.8 % (12.0-15.0); WHITE BLOOD COUNT 12.6 x10^3/uL (4.8-10.8)
[2019-04-10] MEDS: PANTOPRAZOLE 40 MG VIAL IVP SCH (06:27)
[2019-04-10] MEDS: SODIUM CHLORIDE FLUSH 0.9% 10 ML SYRINGE IVP PRN ×4 (06:27→21:39)
[2019-04-10 06:35] LABS: ALBUMIN/GLOBULIN RATIO 0.9 (1.0-2.2); BILIRUBIN,TOTAL 0.9 mg/dL (0.2-1.0); CALCIUM 8.2 mg/dL (8.5-10.3); CREATININE 0.9 mg/dL (0.4-1.0); TOTAL PROTEIN 6.2 g/dL (6.7-8.2)
[2019-04-10] MEDS ORDERED: BUDESONIDE 0.5 MG/2 ML NEB INH SCH (07:00)
[2019-04-10] MEDS: LACTATED RINGERS 1,000 ML IV SCH (07:20)
[2019-04-10] MEDS ORDERED: ALBUTEROL NEB 2.5 MG/3 ML INH PRN (07:25)
[2019-04-10] MEDS ORDERED: VENTOLIN INH PRN (09:00)
[2019-04-10] MEDS: FLUoxetine 10 MG CAPSULE PO SCH (09:12)
[2019-04-10] MEDS ORDERED: NEOSTIGMINE 1 MG/1 ML 10 ML MDV IVP ONE (09:42)
[2019-04-10] MEDS ORDERED: ROCURONIUM 50 MG/5 ML VIAL IVP ONE (09:42)
[2019-04-10] MEDS ORDERED: PROPOFOL 200 MG/20 ML VIAL IVP ONE (09:42)
[2019-04-10] MEDS ORDERED: GLYCOPYRROLATE 1 MG/5 ML VIAL IVP ONE (09:42)
[2019-04-10] MEDS ORDERED: MIDAZOLAM 2 MG/2 ML VIAL IVP ONE (09:42)
[2019-04-10] MEDS ORDERED: ePHEDrine 50 MG/ML VIAL IVP ONE (09:42)
[2019-04-10] MEDS ORDERED: DEXAMETHASONE 4 MG/ML VIAL IVP ONE (09:42)
[2019-04-10] MEDS: ROPIVACAINE 0.2% 200 MG/100 ML BAG EP PRN ×2 (10:07→22:51)
--- NOTE | 2019-04-10 10:27 | PROVIDER PROGRESS NOTE ---
Subjective - General Admit Date: 04/09/19 Procedure Date: 04/09/19 Post Op Days: 1 Procedure Performed: splenectomy - Review of Systems Wound/Incisions: positive: Dressing dry and intact, No drainage Drain Type: Kael Drain Output Description: serosanguinous Approximate mls Output: 265 yesterday; 90 so far today General: positive: Other (notes feeling bloated, mildy nauseated, and dizzy when OOB) Pulmonary: positive: No symptoms Cardiovascular: positive: No symptoms Gastrointestinal: positive: Nausea, Abdominal pain (c/o bloating but pain well controlled with epidural analgesia plus acetaminophen at present). negative: Flatus Genitourinary: positive: No symptoms (ronquillo removed this am) Psychiatric: positive: No symptoms Objective - Patient Data Reviewed Vital Signs: Yes Vital Signs: Vital Signs x48h Temp Pulse Resp BP BP Pulse Ox 04/10/19 07:45 36.5 C 71 16 102/56 L 99 04/10/19 04:05 36.6 C 68 16 110/48 L 98 Weight: Weight 04/08/19 04/09/19 04/10/19 23:59 23:59 23:59 Weight (kg) 79.1 kg Intake & Output: Intake and Output Totals x24h 04/08/19 04/09/19 04/10/19 23:59 23:59 23:59 Intake Total 2675 1440 Output Total 1145 1615 Balance 1530 -175 acosta clear liquids well last night but nauseated this am - Lab Results Lab Results: 04/10/19 06:15 04/10/19 06:15 Other Lab Results: Lab Results x24hrs 04/10/19 04/10/19 04/10/19 Range/Units 07:24 06:15 06:15 WBC 12.6 H (4.8-10.8) x10^3/uL RBC 3.01 L (4.20-5.40) 10^6/uL Hgb 8.8 L (12.0-16.0) g/dL Hct 27.2 L (37.0-47.0) % MCV 90.4 (81.0-99.0) fL MCH 29.2 (27.0-31.0) pg MCHC 32.4 (32.0-36.0) g/dL RDW 15.8 H (12.0-15.0) % Plt Count 262 (130-450) 10^3/uL MPV 9.6 (7.9-10.8) fL Neut # (Auto) 9.9 H (1.5-6.6) 10^3/uL Lymph # (Auto) 1.4 L (1.5-3.5) 10^3/uL [place] # (Auto) 1.2 H (0.0-1.0) 10^3/uL Eos # (Auto) 0.1 (0.0-0.7) 10^3/uL Baso # (Auto) 0.0 (0.0-0.1) 10^3/uL Absolute Nucleated RBC 0.00 x10^3/uL Nucleated RBC % 0.0 /100WBC Sodium 136 (135-145) mmol/L Potassium 3.5 (3.5-5.0) mmol/L Chloride 106 (101-111) mmol/L Carbon Dioxide 20 L (21-32) mmol/L Anion Gap 10.0 (6-13) BUN 8 (6-20) mg/dL Creatinine 0.9 (0.4-1.0) mg/dL Estimated GFR (MDRD) 68 L (>89) Glucose 133 H (70-100) mg/dL POC Whole Bld Glucose 148 H (70 - 100) mg/dL Calcium 8.2 L (8.5-10.3) mg/dL Total Bilirubin 0.9 (0.2-1.0) mg/dL AST 32 (10-42) IU/L ALT 22 (10-60) IU/L Alkaline Phosphatase 27 L (42-121) IU/L Total Protein 6.2 L (6.7-8.2) g/dL Albumin 3.0 L (3.2-5.5) g/dL Globulin 3.2 (2.1-4.2) g/dL Albumin/Globulin Ratio 0.9 L (1.0-2.2) 04/09/19 04/09/19 04/09/19 Range/Units 20:41 16:38 14:51 WBC (4.8-10.8) x10^3/uL RBC (4.20-5.40) 10^6/uL Hgb (12.0-16.0) g/dL Hct (37.0-47.0) % MCV (81.0-99.0) fL MCH (27.0-31.0) pg MCHC (32.0-36.0) g/dL RDW (12.0-15.0) % Plt Count (130-450) 10^3/uL MPV (7.9-10.8) fL Neut # (Auto) (1.5-6.6) 10^3/uL Lymph # (Auto) (1.5-3.5) 10^3/uL [place] # (Auto) (0.0-1.0) 10^3/uL Eos # (Auto) (0.0-0.7) 10^3/uL Baso # (Auto) (0.0-0.1) 10^3/uL Absolute Nucleated RBC x10^3/uL Nucleated RBC % /100WBC Sodium (135-145) mmol/L Potassium (3.5-5.0) mmol/L Chloride (101-111) mmol/L Carbon Dioxide (21-32) mmol/L Anion Gap (6-13) BUN (6-20) mg/dL Creatinine (0.4-1.0) mg/dL Estimated GFR (MDRD) (>89) Glucose (70-100) mg/dL POC Whole Bld Glucose 130 H 144 H 131 H (70 - 100) mg/dL Calcium (8.5-10.3) mg/dL Total Bilirubin (0.2-1.0) mg/dL AST (10-42) IU/L ALT (10-60) IU/L Alkaline Phosphatase (42-121) IU/L Total Protein (6.7-8.2) g/dL Albumin (3.2-5.5) g/dL Globulin (2.1-4.2) g/dL Albumin/Globulin Ratio (1.0-2.2) - Current Medications Current Medications: Current Medications Generic Name Dose Route Start Last Admin Trade Name Freq PRN Reason Stop Dose Admin Cyclobenzaprine HCl 2.5 mg 04/09/19 20:23 04/09/19 21:13 Flexeril PO 2.5 mg DAILY PRN Administration MUSCLE SPASMS Fluoxetine HCl 20 mg 04/10/19 09:00 04/10/19 09:12 Prozac PO 20 mg DAILY KIT Administration Ropivacaine 200 mg in 100 mls @ 0 mls/hr 04/09/19 10:18 04/10/19 10:07 Naropin 0.2% EP 6 mls/hr PRN PRN Administration PAIN Protocol Per Protocol Lactated Ringer's 1,000 mls @ 50 mls/hr 04/09/19 11:00 04/10/19 07:20 Lr IV 50 mls/hr .Q20H KIT Administration Acetaminophen 100 mls @ 400 mls/hr 04/09/19 11:00 04/10/19 06:36 Ofirmev IV Infused Q6H KIT Infusion Montelukast Sodium 10 mg 04/09/19 21:00 04/09/19 21:15 Singulair PO Not Given QPM KIT Non-Formulary Medication 1 applic 04/09/19 21:00 04/09/19 21:15 Clindamycin Phosphate [Clindamycin Phosphate] TP Not Given BID KIT Ondansetron HCl 4 mg 04/09/19 14:25 04/10/19 04:03 Zofran Inj IVP 4 mg Q4HR PRN Administration Nausea / Vomiting Pantoprazole Sodium 40 mg 04/09/19 11:00 04/10/19 06:27 Protonix IVP 40 mg QDAC KIT Administration Sodium Chloride 10 ml 04/09/19 17:00 04/09/19 23:59 Normal Saline Flush 0.9% IVP 10 ml 0100,0900,1700 KIT Administration Sodium Chloride 10 ml 04/09/19 10:37 04/10/19 06:27 Normal Saline Flush 0.9% IVP 10 ml PRN PRN Administration NEEDED PER PROVIDER ORDERS - Physical Exam Wound/Incisions: positive: Dressing dry and intact General Appearance: positive: Alert, Mild distress Eyes Bilateral: positive: Normal inspection, No scleral icterus ENT: positive: ENT inspection nml, Pharynx nml, No signs of dehydration Neck: positive: Nml inspection, No JVD Respiratory: positive: Chest non-tender, No respiratory distress, Breath sounds nml Cardiovascular: positive: Regular rate & rhythm, No murmur, No gallop Abdomen: positive: Tenderness (mild periincisional), Abnml bowel sounds (hypoactive bowel tones) Back: positive: Nml inspection Skin: positive: Color nml, No rash, Warm, Dry. negative: Cyanosis Extremities: positive: No pedal edema. negative: Calf tenderness Neurologic/Psychiatric: positive: Oriented x3 ABX Reporting Has patient been on IV antibiotics over the past 48 hours?: No Impression/Plan - Problem List Problem List: PO Day 1 s/p splenectomy for recurrent splenic cyst; doing well Plan: continue present management: diet as tolerated; OOB as tolerated; ronquillo out today, add ketorolac for additional pain control as needed; start enoxaparin for additional DVT prophylaxis.
[2019-04-10] MEDS: CLINDAMYCIN PHOSPHATE TP SCH ×2 (10:51→20:28)
[2019-04-10] MEDS: E ESTRADIOL E ESTRAD PO SCH (10:52)
[2019-04-10] MEDS: [UNRECOGNIZED DRUG - OTHER] PO SCH (10:52)
[2019-04-10] MEDS: NORGEST PO SCH (10:52)
[2019-04-10] MEDS: SODIUM CHLORIDE FLUSH 0.9% 10 ML SYRINGE IVP SCH ×2 (10:53→13:03)
[2019-04-10] MEDS: KETOROLAC 30 MG/ML VIAL IVP PRN ×2 (11:07→17:22)
[2019-04-10] MEDS: ALBUTEROL NEB 2.5 MG/3 ML INH PRN ×2 (11:40→19:34)
[2019-04-10] MEDS: ENOXAPARIN 40 MG/0.4 ML SYRINGE SUBQ SCH (12:00)
[2019-04-10] MEDS: POLYETHYLENE GLYCOL 3350 17 GM PACKET PO SCH (12:05)
[2019-04-10] MEDS: HYDROmorphone 0.5 MG/0.5 ML SYRINGE IVP PRN ×2 (12:56→16:21)
--- NOTE | 2019-04-10 13:23 | ANESTHESIA POST OP EVALUATION ---
Anesthesia Post Eval - Post Anesthesia Eval CV Function Including HR & BP: positive: Stable Pain Control: positive: Additional Therapies Ordered (Patient c/o severe abdominal pain after using bathroom, states it is unbearable. Epidural infusing at 6ml/hr of 0.2% ropivicaine. Ordered IV Dilaudid.) Nausea & Vomiting: positive: Negative (Epidural infusing without problems, site clean, dry and without redness. No problem ambulating, states legs are not numb. Received Lovenox so I told the hospitalist that the epidural could not be removed until 12 hours after last Lovenox dose.) Mental Status: positive: Appropriate Anesthesia Complications: positive: None
[2019-04-10] MEDS: BUDESONIDE 0.5 MG/2 ML NEB INH SCH (19:34)
[2019-04-10] MEDS: MONTELUKAST 10 MG TABLET PO SCH (20:24)
[2019-04-10] MEDS: CYCLOBENZAPRINE 10 MG TABLET PO PRN (20:24)
[2019-04-11] MEDS: SODIUM CHLORIDE FLUSH 0.9% 10 ML SYRINGE IVP SCH ×4 (00:04→23:43)
[2019-04-11] MEDS: LACTATED RINGERS 1,000 ML IV SCH (02:57)
[2019-04-11] MEDS: PANTOPRAZOLE 40 MG VIAL IVP SCH (06:23)
[2019-04-11] MEDS: SODIUM CHLORIDE FLUSH 0.9% 10 ML SYRINGE IVP PRN (06:40)
[2019-04-11] MEDS: ACETAMINOPHEN 1,000 MG/100 ML 100 ML IV SCH (06:40)
[2019-04-11 06:52] LABS: BASOPHILS # (AUTO) 0.1 10^3/uL (0.0-0.1); BASOPHILS % (AUTO) 0.4 %; EOSINOPHILS # (AUTO) 0.1 10^3/uL (0.0-0.7); EOSINOPHILS % (AUTO) 0.5 %; HGB - HEMOGLOBIN 8.6 g/dL (12.0-16.0); LYMPHOCYTES % (AUTO) 17.3 %; MEAN CORPUSCULAR HEMOGLOBIN 28.4 pg (27.0-31.0); MEAN CORPUSCULAR HGB CONC 30.8 g/dL (32.0-36.0); MEAN CORPUSCULAR VOLUME 92.1 fL (81.0-99.0); MEAN PLATELET VOLUME 9.9 fL (7.9-10.8); MONOCYTES # (AUTO) 0.9 10^3/uL (0.0-1.0); MONOCYTES % (AUTO) 7.9 %; NEUTROPHILS # (AUTO) 8.3 10^3/uL (1.5-6.6); NEUTROPHILS % (AUTO) 73.6 %; PLT - PLATELET COUNT 318 10^3/uL (130-450); RED BLOOD COUNT 3.03 10^6/uL (4.20-5.40); WHITE BLOOD COUNT 11.3 x10^3/uL (4.8-10.8)
[2019-04-11 06:59] LABS: ALBUMIN 3.1 g/dL (3.2-5.5); ALBUMIN/GLOBULIN RATIO 0.9 (1.0-2.2); BILIRUBIN,TOTAL 0.6 mg/dL (0.2-1.0); CALCIUM 8.1 mg/dL (8.5-10.3); CREATININE 0.9 mg/dL (0.4-1.0); TOTAL PROTEIN 6.7 g/dL (6.7-8.2)
--- NOTE | 2019-04-11 07:50 | PROVIDER PROGRESS NOTE ---
Subjective - General Admit Date: 04/09/19 Procedure Date: 04/09/19 Post Op Days: 2 Procedure Performed: splenectomy - Review of Systems Wound/Incisions: positive: Dressing dry and intact Drain Type: Kael Drain Output Description: serosanguinous Approximate mls Output: 130 yesterday; 20 so far today General: positive: Other (c/o moderate incisional pain despite epidural, acetaminophen and ketorolac; unable to tolerate narcotics, causing nausea, dysphoria; no N/V; passing flatus but no stool; no longer dizzy getting out of bed; voiding well; tolerating full liq diet well.) Pulmonary: positive: No symptoms Cardiovascular: positive: No symptoms Gastrointestinal: positive: Abdominal pain (moderate), Flatus (no bm yet). negative: Nausea, Vomiting Genitourinary: positive: No symptoms (voiding well with cath removed) Psychiatric: positive: No symptoms Objective - Patient Data Reviewed Vital Signs: Yes Vital Signs: Vital Signs x48h Temp Pulse Resp BP Pulse Ox 04/11/19 00:17 36.2 C L 88 16 113/70 100 Weight: Weight 04/09/19 04/10/19 04/11/19 23:59 23:59 23:59 Weight (kg) 79.1 kg Intake & Output: Intake and Output Totals x24h 04/09/19 04/10/19 04/11/19 23:59 23:59 23:59 Intake Total 2675 3012.5 853.333 Output Total 1145 2185 1250 Balance 1530 827.5 -396.667 - Lab Results Lab Results: 04/11/19 06:02 04/11/19 06:02 Other Lab Results: Lab Results x24hrs 04/11/19 04/11/19 04/10/19 Range/Units 06:02 06:02 11:20 WBC 11.3 H (4.8-10.8) x10^3/uL RBC 3.03 L (4.20-5.40) 10^6/uL Hgb 8.6 L (12.0-16.0) g/dL Hct 27.9 L (37.0-47.0) % MCV 92.1 (81.0-99.0) fL MCH 28.4 (27.0-31.0) pg MCHC 30.8 L (32.0-36.0) g/dL RDW 16.0 H (12.0-15.0) % Plt Count 318 (130-450) 10^3/uL MPV 9.9 (7.9-10.8) fL Neut # (Auto) 8.3 H (1.5-6.6) 10^3/uL Lymph # (Auto) 2.0 (1.5-3.5) 10^3/uL [place] # (Auto) 0.9 (0.0-1.0) 10^3/uL Eos # (Auto) 0.1 (0.0-0.7) 10^3/uL Baso # (Auto) 0.1 (0.0-0.1) 10^3/uL Absolute Nucleated RBC 0.00 x10^3/uL Nucleated RBC % 0.0 /100WBC Sodium 138 (135-145) mmol/L Potassium 3.5 (3.5-5.0) mmol/L Chloride 105 (101-111) mmol/L Carbon Dioxide 23 (21-32) mmol/L Anion Gap 10.0 (6-13) BUN 7 (6-20) mg/dL Creatinine 0.9 (0.4-1.0) mg/dL Estimated GFR (MDRD) 68 L (>89) Glucose 99 (70-100) mg/dL POC Whole Bld Glucose 94 (70 - 100) mg/dL Calcium 8.1 L (8.5-10.3) mg/dL Total Bilirubin 0.6 (0.2-1.0) mg/dL AST 37 (10-42) IU/L ALT 29 (10-60) IU/L Alkaline Phosphatase 42 (42-121) IU/L Total Protein 6.7 (6.7-8.2) g/dL Albumin 3.1 L (3.2-5.5) g/dL Globulin 3.6 (2.1-4.2) g/dL Albumin/Globulin Ratio 0.9 L (1.0-2.2) Lipase 30 (22-51) U/L - Current Medications Current Medications: Current Medications Generic Name Dose Route Start Last Admin Trade Name Freq PRN Reason Stop Dose Admin Albuterol 2.5 mg 04/09/19 17:48 04/10/19 19:34 INH 2.5 mg RTQ4H PRN Administration Wheezing Budesonide 0.5 mg 04/10/19 10:28 04/10/19 19:34 Pulmicort INH 0.5 mg RTBID KIT Administration Cyclobenzaprine HCl 2.5 mg 04/09/19 20:23 04/10/19 20:24 Flexeril PO 2.5 mg DAILY PRN Administration MUSCLE SPASMS Enoxaparin Sodium 40 mg 04/10/19 11:00 04/10/19 12:00 Lovenox SUBQ 40 mg DAILY KIT Administration Fluoxetine HCl 20 mg 04/10/19 09:00 04/10/19 09:12 Prozac PO 20 mg DAILY KIT Administration Ropivacaine 200 mg in 100 mls @ 0 mls/hr 04/09/19 10:18 04/10/19 22:51 Naropin 0.2% EP 6 mls/hr PRN PRN Administration PAIN Protocol Per Protocol Montelukast Sodium 10 mg 04/09/19 21:00 04/10/19 20:24 Singulair PO Not Given QPM KIT Non-Formulary Medication 1 applic 04/09/19 21:00 04/10/19 20:28 Clindamycin Phosphate [Clindamycin Phosphate] TP 1 applic BID KIT Administration Non-Formulary Medication 1 each 04/10/19 09:00 04/10/19 10:52 L-Norgest/E.Estradiol-E.Estrad [Camrese 0.15-0.03-0.01 Mg Tab] PO 1 each DAILY KIT Administration Ondansetron HCl 4 mg 04/09/19 14:25 04/10/19 21:39 Zofran Inj IVP 4 mg Q4HR PRN Administration Nausea / Vomiting Polyethylene Glycol 17 gm 04/10/19 11:00 04/10/19 12:05 Miralax PO 17 gm DAILY KIT Administration Sodium Chloride 10 ml 04/09/19 17:00 04/11/19 00:04 Normal Saline Flush 0.9% IVP 10 ml 0100,0900,1700 KIT Administration Sodium Chloride 10 ml 04/09/19 10:37 04/11/19 06:40 Normal Saline Flush 0.9% IVP 10 ml PRN PRN Administration NEEDED PER PROVIDER ORDERS - Physical Exam Wound/Incisions: positive: Dressing dry and intact General Appearance: positive: No acute distress, Alert Eyes Bilateral: positive: Normal inspection, No scleral icterus ENT: positive: ENT inspection nml, Pharynx nml, No signs of dehydration Neck: positive: Nml inspection, No JVD Respiratory: positive: Chest non-tender, No respiratory distress, Breath sounds nml. negative: Wheezes, Rales, Rhonchi Cardiovascular: positive: Regular rate & rhythm, No murmur, No gallop Abdomen: positive: Nml bowel sounds, No distention, Tenderness (minimal), Other (dressing dry and intact; drain serosanguinous, decreasing) Skin: positive: Color nml, No rash, Warm, Dry. negative: Cyanosis Extremities: positive: Non-tender. negative: Calf tenderness Neurologic/Psychiatric: positive: Oriented x3 ABX Reporting Has patient been on IV antibiotics over the past 48 hours?: No Impression/Plan - Problem List Problem List: Doing well PO Day 2 s/p splenectomy; plan: increase diet, activity, d/c IVF, po meds (non narcotic) plus epidural; continue epidural x 24 hours given intolerance to narcotics. Tomorrow consider stopping epidural and send pt home if pain adequately controlled with po meds.
[2019-04-11] MEDS: ENOXAPARIN 40 MG/0.4 ML SYRINGE SUBQ SCH (07:57)
--- NOTE | 2019-04-11 08:46 | ANESTHESIA POST OP EVALUATION ---
Anesthesia Post Eval - Post Anesthesia Eval CV Function Including HR & BP: positive: Stable Pain Control: positive: Adequate Nausea & Vomiting: positive: Negative Mental Status: positive: Appropriate Anesthesia Complications: positive: None - Other Details/Therapies Other Details/Therapies: Epidural removed on POD2. Pt with no complaints of pain. Ambulating in room when I arrived. Pt to sitting for removal. Tip intact, site without redness or swelling. Small amount of blood from site, pressure held for 1 min with gauze. Hemostasis achieved. Pt without complaint during removal and was very happy with her epidural.
[2019-04-11] MEDS: BUDESONIDE 0.5 MG/2 ML NEB INH SCH ×2 (09:00→19:51)
[2019-04-11] MEDS: ALBUTEROL NEB 2.5 MG/3 ML INH PRN ×2 (09:00→19:51)
[2019-04-11] MEDS ORDERED: IBUPROFEN 600 MG TABLET PO SCH (09:52)
[2019-04-11] MEDS: FLUoxetine 10 MG CAPSULE PO SCH (10:07)
[2019-04-11] MEDS: PANTOPRAZOLE 40 MG TABLET PO SCH (10:07)
[2019-04-11] MEDS: [UNRECOGNIZED DRUG - OTHER] PO SCH (10:09)
[2019-04-11] MEDS: CLINDAMYCIN PHOSPHATE TP SCH ×2 (10:09→20:33)
[2019-04-11] MEDS: E ESTRADIOL E ESTRAD PO SCH (10:09)
[2019-04-11] MEDS: NORGEST PO SCH (10:09)
[2019-04-11] MEDS: POLYETHYLENE GLYCOL 3350 17 GM PACKET PO SCH (10:10)
[2019-04-11] MEDS: ACETAMINOPHEN 325 MG TABLET PO SCH ×3 (10:31→20:30)
[2019-04-11] MEDS: CYCLOBENZAPRINE 10 MG TABLET PO PRN (10:38)
[2019-04-11] MEDS: ONDANSETRON 4 MG/2 ML VIAL IVP PRN ×2 (11:35→16:56)
[2019-04-11] MEDS ORDERED: oxyCODONE 30 MG TABLET PO PRN ×3 (11:45→12:03)
[2019-04-11] MEDS ORDERED: oxyCODONE 5 MG TABLET PO PRN ×2 (12:01→12:17)
[2019-04-11] MEDS: IBUPROFEN 600 MG TABLET PO SCH ×3 (12:27→22:59)
[2019-04-11] MEDS: MONTELUKAST 10 MG TABLET PO SCH (20:33)
[2019-04-12] MEDS: ACETAMINOPHEN 325 MG TABLET PO SCH ×2 (02:01→08:42)
[2019-04-12 05:21] LABS: BASOPHILS # (AUTO) 0.1 10^3/uL (0.0-0.1); BASOPHILS % (AUTO) 0.6 %; EOSINOPHILS # (AUTO) 0.3 10^3/uL (0.0-0.7); EOSINOPHILS % (AUTO) 2.5 %; HGB - HEMOGLOBIN 7.8 g/dL (12.0-16.0); LYMPHOCYTES % (AUTO) 18.8 %; MEAN CORPUSCULAR HGB CONC 31.8 g/dL (32.0-36.0); MEAN CORPUSCULAR VOLUME 91.1 fL (81.0-99.0); MEAN PLATELET VOLUME 9.3 fL (7.9-10.8); MONOCYTES # (AUTO) 0.8 10^3/uL (0.0-1.0); MONOCYTES % (AUTO) 7.4 %; NEUTROPHILS # (AUTO) 7.6 10^3/uL (1.5-6.6); NEUTROPHILS % (AUTO) 70.1 %; PLT - PLATELET COUNT 328 10^3/uL (130-450); RED BLOOD COUNT 2.69 10^6/uL (4.20-5.40); RED CELL DISTRIBUTION WIDTH 15.8 % (12.0-15.0); WHITE BLOOD COUNT 10.8 x10^3/uL (4.8-10.8)
[2019-04-12 05:35] LABS: ALBUMIN 2.9 g/dL (3.2-5.5); ALBUMIN/GLOBULIN RATIO 0.9 (1.0-2.2); BILIRUBIN,TOTAL 0.6 mg/dL (0.2-1.0); CALCIUM 8.1 mg/dL (8.5-10.3); CREATININE 0.8 mg/dL (0.4-1.0); TOTAL PROTEIN 6.1 g/dL (6.7-8.2)
[2019-04-12] MEDS: IBUPROFEN 600 MG TABLET PO SCH ×2 (06:02→12:05)
[2019-04-12] MEDS: PANTOPRAZOLE 40 MG TABLET PO SCH (06:02)
[2019-04-12] MEDS: BUDESONIDE 0.5 MG/2 ML NEB INH SCH (07:17)
[2019-04-12] MEDS: ALBUTEROL NEB 2.5 MG/3 ML INH PRN (07:17)
[2019-04-12 08:25] VITALS: BP 131/66
[2019-04-12] MEDS: FLUoxetine 10 MG CAPSULE PO SCH (08:43)
[2019-04-12] MEDS: CLINDAMYCIN PHOSPHATE TP SCH (08:43)
[2019-04-12] MEDS: ENOXAPARIN 40 MG/0.4 ML SYRINGE SUBQ SCH (08:43)
[2019-04-12] MEDS: NORGEST PO SCH (08:43)
[2019-04-12] MEDS: E ESTRADIOL E ESTRAD PO SCH (08:43)
[2019-04-12] MEDS: [UNRECOGNIZED DRUG - OTHER] PO SCH (08:43)
[2019-04-12] MEDS: SODIUM CHLORIDE FLUSH 0.9% 10 ML SYRINGE IVP SCH (08:44)
[2019-04-12] MEDS: POLYETHYLENE GLYCOL 3350 17 GM PACKET PO SCH (08:44)
--- NOTE | 2019-04-12 12:50 | DISCHARGE SUMMARY ---
"Discharge Summary Admit Date: 04/09/19 Discharge Date: 04/12/19 Discharging Provider: Juan C Rodriguez MD Code Status: Attempt Resuscitation Condition at Discharge: Good Discharge Disposition: 01 Home, Self Care - DIAGNOSES Admission Diagnoses: Recurrent symptomatic splenic cyst Discharge Diagnoses with Status of Each Condition: Resolved with splenectomy - HPI History of Present Illness: Patient is a very pleasant 43 year old female with a splenic cyst that [place]est[place] [address] Lara (assisted by me). When the cyst and her symptoms recurred she sought to have it removed and came to see me. - CONSULTS | PROCEDURES Consultations: None Procedures: Splenectomy - HOSPITAL COURSE Hospital Course: Uncomplicated. - ALLERGIES Allergies/Adverse Reactions: Allergies Allergy/AdvReac Type Severity Reaction Status Date / Time No Known Drug Allergies Allergy Verified 04/09/19 06:50 - MEDICATIONS Home Medications: Ambulatory Orders Medication Instructions Recorded Confirmed Albuterol Sulfate [Ventolin Hfa] 1 puffs INH Q4HR PRN 05/24/15 04/07/19 Cyclobenzaprine [Flexeril] 2.5 mg PO DAILY PRN #0 tablet 02/11/17 04/07/19 Beclomethasone Dipropionate [Qvar 1 inh IH BID 04/07/19 04/07/19 Redihaler (40 mcg)] Clindamycin Phosphate 1 applic TP BID 04/07/19 04/07/19 FLUoxetine [PROzac] 20 mg PO DAILY 04/07/19 04/07/19 l-Norgest/E.estradiol-E.estrad 1 each PO DAILY 04/07/19 04/07/19 [Camrese 0.15-0.03-0.01 mg Tab] Montelukast [Singulair] 10 mg PO QPM 04/09/19 04/09/19 Home Medications Other | Comments: Toradol x5 days, Colace to keep stools soft. - PHYSICAL EXAM AT DISCHARGE General Appearance: positive: No acute distress Eyes Bilateral: positive: No lid inflammation, Conjunctivae nml, No scleral icterus ENT: positive: No signs of dehydration Neck: positive: Trachea midline Respiratory: positive: Chest non-tender, No respiratory distress, Breath sounds nml Cardiovascular: positive: Regular rate & rhythm Abdomen: positive: Tenderness (Very mild incisional.) Skin: positive: Color nml Extremities: positive: Non-tender, Nml appearance Neurologic/Psychiatric: positive: Oriented x3, Motor nml, Sensation nml, Mood/affect nml - LABS Result Diagrams: 04/12/19 05:14 04/12/19 05:14 - QUALITY (Female Hip Fx Only) Was patient sent home on osteoporosis medication?: No - FOLLOW UP Follow Up: Juan C Rodriguez this Friday. - TIME SPENT Time Spent in Discharge (Minutes): 45"
--- NOTE | 2019-04-12 12:55 | Discharge Plan ---
Discharge Plan Problem Reviewed?: Yes Disposition: Home, Self Care Condition: Good Prescriptions: Docusate Sodium 250Mg Capsule [Colace 250Mg Capsule] 250 mg PO DAILY #10 capsule Ketorolac [Toradol] 10 mg PO Q6H #20 tablet Diet: Regular Activity Restrictions: No lifting >15 pounds for 6 weeks. Shower Restrictions: No Driving Restrictions: Yes Additional Instructions or Follow Up instructions: Strip drain daily and record output. Okay to shower - okay to get wounds wet with soap and water. No Smoking: If you smoke, Please STOP! Call for help. Follow-up with: Cynthia Reid PA-C [Primary Care Provider] - Juan C Rodriguez MD [Provider Admit Priv/Credential] -
== END 2019-04-12 14:08 | disposition home or self-care (01) | DRG 801 ==
LOC: MS2 04-09 06:13
PROVIDERS: ADMIT Surgery; ATTEND Surgery
PROC: 07TP0ZZ Resection of Spleen, Open Approach (ICD-10-PCS; principal; 2019-04-09 07:30)
DX: D73.4 Cyst of spleen (principal); K66.0 Peritoneal adhesions (postprocedural) (postinfection); J45.990 Exercise induced bronchospasm; F41.0 Panic disorder [episodic paroxysmal anxiety]; F32.9 Major depressive disorder, single episode, unspecified; E66.9 Obesity, unspecified; R11.0 Nausea; T40.605A Adverse effect of unspecified narcotics, initial encounter; Y92.230 Patient room in hospital as the place of occurrence of the external cause; Z79.51 Long term (current) use of inhaled steroids; Z79.899 Other long term (current) drug therapy; Z68.25 Body mass index [BMI] 25.0-25.9, adult
CPT/HCPCS: 36415; 80053; 81025; 81599; 83690; 85025; 94640; A9270; J0131; J0690; J1170; J1650; J2765; J7120; J7626

== ENCOUNTER 2019-04-07 13:04 | Outpatient (CLI) | payer OTHER ==
[2019-04-07 13:18] LABS: BASOPHILS % (AUTO) 0.4 %; EOSINOPHILS # (AUTO) 0.1 10^3/uL (0.0-0.7); EOSINOPHILS % (AUTO) 1.2 %; HGB - HEMOGLOBIN 12.3 g/dL (12.0-16.0); LYMPHOCYTES # (AUTO) 2.2 10^3/uL (1.5-3.5); MEAN CORPUSCULAR HEMOGLOBIN 28.9 pg (27.0-31.0); MEAN CORPUSCULAR HGB CONC 32.5 g/dL (32.0-36.0); MEAN CORPUSCULAR VOLUME 89.2 fL (81.0-99.0); MEAN PLATELET VOLUME 9.7 fL (7.9-10.8); MONOCYTES # (AUTO) 0.5 10^3/uL (0.0-1.0); MONOCYTES % (AUTO) 5.2 %; NEUTROPHILS # (AUTO) 7.4 10^3/uL (1.5-6.6); NEUTROPHILS % (AUTO) 71.7 %; PLT - PLATELET COUNT 326 10^3/uL (130-450); RED BLOOD COUNT 4.25 10^6/uL (4.20-5.40); RED CELL DISTRIBUTION WIDTH 14.8 % (12.0-15.0); WHITE BLOOD COUNT 10.4 x10^3/uL (4.8-10.8)
== END 2019-04-07 13:05 | disposition home or self-care (01) ==
LOC: LAB 13:04
PROVIDERS: ATTEND Nurse Anesthetist, Certified Registered
DX: Z01.812 Encounter for preprocedural laboratory examination (principal); D73.4 Cyst of spleen
CPT/HCPCS: 36415; 85025; 86850; 86900; 86901

== ENCOUNTER 2019-04-14 20:38 | Outpatient (CLI) | payer OTHER | END 2019-04-14 20:39 | disposition critical access hospital (66) | LOC: EMS 20:38 | PROVIDERS: ATTEND Surgery | DX: R10.9 Unspecified abdominal pain (principal); R11.0 Nausea; R42 Dizziness and giddiness | CPT/HCPCS: A0425; A0429 ==

== ENCOUNTER 2019-04-14 21:03 | Observation (INO) | payer OTHER ==
[2019-04-14 21:22] LABS: BASOPHILS # (AUTO) 0.1 10^3/uL (0.0-0.1); BASOPHILS % (AUTO) 0.3 %; EOSINOPHILS # (AUTO) 0.1 10^3/uL (0.0-0.7); EOSINOPHILS % (AUTO) 0.7 %; HGB - HEMOGLOBIN 11.1 g/dL (12.0-16.0); LYMPHOCYTES # (AUTO) 1.3 10^3/uL (1.5-3.5); LYMPHOCYTES % (AUTO) 8.5 %; MEAN CORPUSCULAR HEMOGLOBIN 29.5 pg (27.0-31.0); MEAN CORPUSCULAR HGB CONC 32.8 g/dL (32.0-36.0); MEAN CORPUSCULAR VOLUME 89.9 fL (81.0-99.0); MEAN PLATELET VOLUME 8.9 fL (7.9-10.8); MONOCYTES % (AUTO) 6.3 %; NEUTROPHILS # (AUTO) 12.7 10^3/uL (1.5-6.6); NEUTROPHILS % (AUTO) 83.7 %; PLT - PLATELET COUNT 631 10^3/uL (130-450); RED BLOOD COUNT 3.76 10^6/uL (4.20-5.40); RED CELL DISTRIBUTION WIDTH 15.3 % (12.0-15.0); WHITE BLOOD COUNT 15.2 x10^3/uL (4.8-10.8)
--- NOTE | 2019-04-14 21:33 | ED Physician Documentation ---
History of Present Illness - Stated complaint Stated Complaint: WEAKNESS/NAUSEA - Chief complaint Chief Complaint: Abd Pain - History obtained from History obtained from: Patient - History of Present Illness Timing: Today Pain level now: 7 Improved by: rest Worsened by: movement, palpation Associated symptoms: nausea, lightheadedness - Additonal information Additional information: BIBA, c/o generalized abdominal pain (cramping), gradually worsening since this morning. This evening, she became nauseas, lightheaded, and had near-syncope. She also notes that the GINGER drain seems to be draining substantially more material than previous. Patient is 5 days post-operative splenectomy. Review of Systems Constitutional: reports: Fatigue, Sweats. denies: Fever, Chills Cardiac: reports: Reviewed and negative Respiratory: reports: Reviewed and negative GI: reports: Abdominal Pain, Nausea. denies: Vomiting, Constipation, Diarrhea : denies: Dysuria, Frequency Skin: reports: Reviewed and negative Musculoskeletal: reports: Reviewed and negative Neurologic: reports: Generalized weakness, Near syncope. denies: Focal weakness, Numbness PD PAST MEDICAL HISTORY - Past Medical History Past Medical History: Yes Cardiovascular: None Respiratory: Asthma Neuro: None Endocrine/Autoimmune: None GI: GERD : None HEENT: Chronic vision loss Psych: Depression, Anxiety, Panic attacks, Obsessive compulsive disorder Musculoskeletal: None Derm: None - Past Surgical History Past Surgical History: No - Present Medications Home Medications: Ambulatory Orders Medication Instructions Recorded Confirmed Albuterol Sulfate [Ventolin Hfa] 1 puffs INH Q4HR PRN 05/24/15 04/14/19 Cyclobenzaprine [Flexeril] 2.5 mg PO DAILY PRN #0 tablet 02/11/17 04/14/19 Beclomethasone Dipropionate [Qvar 1 inh IH BID 04/07/19 04/14/19 Redihaler (40 mcg)] Clindamycin Phosphate 1 applic TP BID 04/07/19 04/14/19 FLUoxetine [PROzac] 20 mg PO DAILY 04/07/19 04/14/19 l-Norgest/E.estradiol-E.estrad 1 each PO DAILY 04/07/19 04/14/19 [Camrese 0.15-0.03-0.01 mg Tab] Docusate Sodium 250Mg Capsule 250 mg PO DAILY #10 capsule 04/12/19 04/14/19 [Colace 250Mg Capsule] Ketorolac [Toradol] 10 mg PO Q6H #20 tablet 04/12/19 - Allergies Allergies/Adverse Reactions: Allergies Allergy/AdvReac Type Severity Reaction Status Date / Time No Known Drug Allergies Allergy Verified 04/14/19 21:12 - Social History Does the pt smoke?: No Smoking Status: Never smoker Does the pt drink ETOH?: No Does the pt have substance abuse?: No - Immunizations Immunizations are current?: Yes - POLST Patient has POLST: No PD ED PE NORMAL - Vitals Vital signs reviewed: Yes - General General: Alert and oriented X 3, No acute distress (NAD at rest, but appears to have pain with palpation of abdomen as well as movement such as sitting up), Well developed/nourished - HEENT HEENT: Moist mucous membranes - Neck Neck: Supple, no meningeal sign - Cardiac Cardiac: RRR, No murmur - Respiratory Respiratory: No respiratory distress, Clear bilaterally - Abdomen Abdomen: Soft, Non distended PD ED PE EXPANDED - Abdomen Abdomen: Decreased BS, Tender to palpation (diffusely tender, worst in LUQ), Generalized/diffuse, Surgical scars (midline surgical incision is C/D/I without erythema or discharge), Other (GINGER drain in place LUQ with red translucent drainage in tubing and drain). No: Rebound Results - Vitals Vitals: Vital Signs - 24 hr 04/14/19 04/14/19 04/14/19 21:04 22:22 22:46 Temperature 37.1 C Heart Rate 79 79 75 Respiratory 18 16 16 Rate Blood Pressure 127/70 118/77 132/74 H O2 Saturation 97 97 98 04/14/19 04/15/19 04/15/19 23:38 00:19 01:02 Temperature 36.7 C 36.7 C Heart Rate 77 70 72 Respiratory 18 15 17 Rate Blood Pressure 116/63 122/69 123/79 O2 Saturation 96 97 97 Oxygen O2 Source Room air - Labs Labs: Laboratory Tests 04/14/19 04/14/19 04/14/19 21:16 21:16 21:58 WBC 15.2 H RBC 3.76 L Hgb 11.1 L Hct 33.8 L MCV 89.9 MCH 29.5 MCHC 32.8 RDW 15.3 H Plt Count 631 H MPV 8.9 Neut # (Auto) 12.7 H Lymph # (Auto) 1.3 L [place] # (Auto) 1.0 Eos # (Auto) 0.1 Baso # (Auto) 0.1 Absolute Nucleated RBC 0.06 Nucleated RBC % 0.4 Sodium 135 Potassium 4.4 Chloride 102 Carbon Dioxide 21 Anion Gap 12.0 BUN 12 Creatinine 1.0 Estimated GFR (MDRD) 60 L Glucose 150 H Calcium 9.0 Total Bilirubin 0.8 AST 60 H ALT 74 H Alkaline Phosphatase 107 Total Protein 7.1 Albumin 3.5 Globulin 3.6 Albumin/Globulin Ratio 1.0 Lipase 60 H Urine Color YELLOW Urine Clarity CLEAR Urine pH 5.5 Ur Specific [place] 1.025 Urine Protein NEGATIVE Urine Glucose (UA) NEGATIVE Urine Ketones 15 H Urine Occult Blood NEGATIVE Urine Nitrite NEGATIVE Urine Bilirubin NEGATIVE Urine Urobilinogen 0.2 (NORMAL) Ur Leukocyte Esterase NEGATIVE Ur Microscopic Review NOT INDICATED Urine Culture Comments NOT INDICATED Urine HCG, Qual NEGATIVE - Rads (name of study) CT A/P Radiology: Prelim report reviewed, See rad report PD MEDICAL DECISION MAKING - ED course Complexity details: reviewed old records, reviewed results, re-evaluated patient, considered differential, d/w patient ED course: d/w Dr. Lou, will admit and she recommends IV zosyn (dose given in ED). Departure - Departure Disposition: ED Place in Observation Clinical Impression: Small bowel obstruction Condition: Stable
[2019-04-14 21:36] LABS: ALBUMIN 3.5 g/dL (3.2-5.5); BILIRUBIN,TOTAL 0.8 mg/dL (0.2-1.0); TOTAL PROTEIN 7.1 g/dL (6.7-8.2)
[2019-04-14] MEDS ORDERED: ONDANSETRON 4 MG/2 ML VIAL IVP STA (21:48)
[2019-04-14] MEDS ORDERED: HYDROmorphone 1 MG/ML CARPUJECT IVP STA (21:48)
[2019-04-14] MEDS ORDERED: SODIUM CHLORIDE 0.9% 1,000 ML IV STA (21:48)
[2019-04-14] MEDS ORDERED: IOVERSOL 320 100 ML VIAL IVP ONE ×2 (22:01→22:35)
[2019-04-14 22:02] LABS: BILIRUBIN,URINE NEGATIVE (NEGATIVE); GLUCOSE, URINE (UA) NEGATIVE (NEGATIVE); KETONES,URINE (UA) 15 mg/dL (NEGATIVE); LEUKOCYTE ESTERASE, URINE NEGATIVE (NEGATIVE); NITRITE,URINE NEGATIVE (NEGATIVE); OCCULT BLOOD,URINE NEGATIVE (NEGATIVE); PH,URINE 5.5 PH (5.0-7.5); PROTEIN,URINE NEGATIVE (NEGATIVE); UROBILINOGEN,URINE 0.2 (NORMAL) E.U./dL (NORMAL)
[2019-04-14 22:07] LABS: CLARITY,URINE CLEAR (CLEAR); HCG UR QUAL NEGATIVE
--- NOTE | 2019-04-14 23:19 | CT Report ---
Reason: abd. pain, post-splenectomy Procedure Date: 04/14/2019 Accession Number: [id number] / [id number] Procedure: CT - Abdomen/Pelvis W CPT Code: FULL RESULT: EXAM: CT ABDOMEN AND PELVIS EXAM DATE: 04/14/2019 10:37 PM CLINICAL HISTORY: Abdominal pain, post-splenectomy. Splenectomy 04/09/2019. COMPARISONS: ABDOMEN/PELVIS W/WO 12/18/2016 1:19 PM. TECHNIQUE: Routine helical CT imaging was performed through the abdomen and pelvis. IV contrast: 100 mL Optiray 320. Enteric contrast: No. Reconstructions: Coronal and sagittal. In accordance with CT protocol optimization, one or more of the following dose reduction techniques were utilized for this exam: automated exposure control, adjustment of mA and/or KV based on patient size, or use of iterative reconstructive technique. FINDINGS: Lung Bases: Mild left base lower lobe lung consolidation. This could be atelectasis or pneumonia. Tiny left pleural effusion. Minimal consolidative atelectasis in the right lower lobe. Liver: Unremarkable. Gallbladder: Unremarkable. Bile Ducts: Unremarkable. Pancreas: Unremarkable. Spleen: Splenectomy. Hemorrhage and fluid seen in the left upper quadrant posteriorly in the splenectomy bed, measures 7.1 x 1.7 x 2.1 cm. Adrenals: Unremarkable. Kidneys: Small right lower pole renal cyst. No hydronephrosis. Bowel: Multiple fluid-filled distended and mildly dilated small bowel loops are seen in the abdomen which tapered to more decompressed small bowel at a thickened small bowel loop seen in the left lower quadrant on image #69. The small bowel is thickened with a length of 12.4 cm decompressed in the pelvis, see axial image 75. There is mild adjacent stranding adjacent to these thickened small bowel loops. Small free fluid seen in the left lower quadrant and in the left paracolic gutter. Small free fluid in the posterior cul-de-sac. No pneumatosis. Normal appendix. Small amount of free air is seen anteriorly at the midline abdomen. Vertical midline incision in the abdomen. Pelvis: Tiny gas bubble in the bladder. The uterus is anteverted. Vasculature: The superior mesenteric artery appears patent. Bones: No acute bone findings. IMPRESSION: 1. Mild left base lower lobe lung consolidation. This could be atelectasis or pneumonia. Tiny left pleural effusion. 2. Hemorrhage and fluid seen in the left upper quadrant posteriorly in the splenectomy bed, measures 7.1 x 1.7 x 2.1 cm. 3. Multiple fluid-filled distended and mildly dilated small bowel loops are seen in the abdomen which tapered to more decompressed small bowel at a thickened small bowel loop seen in the left lower quadrant on image #69. The small bowel is thickened with a length of 12.4 cm decompressed in the pelvis, see axial image 75. There is mild adjacent stranding adjacent to these thickened small bowel loops. Small free fluid seen in the left lower quadrant and in the left paracolic gutter. A partial small bowel obstruction or small bowel ileus could be present. Acute enteritis could be present at the thickened small bowel and small bowel ischemia is possible. Small free fluid in the pelvis. 4. Small amount of free air is seen anteriorly at the midline abdomen. 5. Tiny gas bubble in the bladder. 6. See above. RAD[facility] The call report notification system was initiated by Dr. Cici Palmer at 11:12 PM on 04/14/2019. The above call report findings were discussed with Brad Dubose by Dr. Cici Palmer at 11:15 PM on 04/14/2019.
[2019-04-15] MEDS ORDERED: HYDROmorphone 1 MG/ML CARPUJECT IVP STA (00:04)
[2019-04-15] MEDS ORDERED: PIPERACILLIN/TAZOBACTAM 3.375 GM in SODIUM CHLORIDE 0.9% MINIBAG 100 ML IV STA (00:08)
[2019-04-15] MEDS ORDERED: HYDROmorphone PCA 20MG/100ML IV PRN (01:56)
[2019-04-15] MEDS ORDERED: ONDANSETRON 4 MG/2 ML VIAL IVP PRN (01:58)
[2019-04-15] MEDS: LACTATED RINGERS 1,000 ML IV SCH ×2 (03:20→18:57)
[2019-04-15] MEDS: SODIUM CHLORIDE FLUSH 0.9% 10 ML SYRINGE IVP PRN ×2 (03:25→08:36)
[2019-04-15 05:30] LABS: BASOPHILS % (AUTO) 0.3 %; EOSINOPHILS # (AUTO) 0.2 10^3/uL (0.0-0.7); EOSINOPHILS % (AUTO) 1.8 %; HGB - HEMOGLOBIN 9.9 g/dL (12.0-16.0); LYMPHOCYTES # (AUTO) 1.5 10^3/uL (1.5-3.5); MEAN CORPUSCULAR HEMOGLOBIN 28.4 pg (27.0-31.0); MEAN CORPUSCULAR HGB CONC 31.5 g/dL (32.0-36.0); MEAN CORPUSCULAR VOLUME 90.2 fL (81.0-99.0); MEAN PLATELET VOLUME 8.9 fL (7.9-10.8); MONOCYTES % (AUTO) 9.2 %; NEUTROPHILS # (AUTO) 8.1 10^3/uL (1.5-6.6); NEUTROPHILS % (AUTO) 74.3 %; PLT - PLATELET COUNT 600 10^3/uL (130-450); RED BLOOD COUNT 3.48 10^6/uL (4.20-5.40); RED CELL DISTRIBUTION WIDTH 15.4 % (12.0-15.0); WHITE BLOOD COUNT 10.9 x10^3/uL (4.8-10.8)
[2019-04-15] MEDS: PIPERACILLIN/TAZOBACTAM 3.375 GM in SODIUM CHLORIDE 0.9% MINIBAG 100 ML IV SCH ×3 (05:37→20:04)
[2019-04-15 05:42] LABS: ALBUMIN/GLOBULIN RATIO 0.9 (1.0-2.2); BILIRUBIN,TOTAL 0.6 mg/dL (0.2-1.0); CALCIUM 8.4 mg/dL (8.5-10.3); CREATININE 0.8 mg/dL (0.4-1.0); TOTAL PROTEIN 6.3 g/dL (6.7-8.2)
[2019-04-15] MEDS: HYDROmorphone 1 MG/ML CARPUJECT IVP PRN ×3 (05:58→08:35)
[2019-04-15] MEDS: metroNIDAZOLE 500 MG/100 ML 500 MG/100 ML BAG IV SCH ×3 (06:33→21:24)
[2019-04-15] MEDS: SODIUM CHLORIDE FLUSH 0.9% 10 ML SYRINGE IVP SCH ×2 (08:23→18:57)
[2019-04-15] MEDS ORDERED: CLINDAMYCIN PHOSPHATE TOP PRN (19:30)
[2019-04-15] MEDS ORDERED: CYCLOBENZAPRINE 10 MG TABLET PO PRN (19:30)
[2019-04-15] MEDS ORDERED: FLUoxetine 10 MG CAPSULE PO SCH (21:00)
[2019-04-15] MEDS ORDERED: ALBUTEROL 6.7 GM INHALER INH PRN (21:00)
--- NOTE | 2019-04-15 22:01 | PROVIDER PROGRESS NOTE ---
Subjective - General Admit Date: 04/15/19 Procedure Date: 04/09/19 Post Op Days: 6 Procedure Performed: Splenectomy - Review of Systems Wound/Incisions: positive: Healing well Drain Type: 19 [place] Kael drain in the left upper quadrant Drain Output Description: Serosanguineous Approximate mls Output: 655 General: positive: Other (Markedly improved when I saw her. Initially she had quite a bit of pain and manage but she states this has improved markedly with the passage of time and IV fluids.) HEENT: positive: No symptoms Pulmonary: positive: No symptoms Cardiovascular: positive: No symptoms Gastrointestinal: positive: Nausea (Improved), Abdominal pain (Improved) Genitourinary: positive: No symptoms Musculoskeletal: positive: No symptoms Skin: positive: No symptoms Objective - Patient Data Reviewed Vital Signs: Yes Vital Signs: Vital Signs x48h Temp Pulse Resp BP Pulse Ox 04/15/19 21:00 16 04/15/19 20:00 18 04/15/19 19:00 16 04/15/19 18:00 16 04/15/19 15:50 16 04/15/19 15:00 16 04/15/19 14:09 18 04/15/19 14:00 36.4 C L 79 18 124/60 95 Weight: Weight 04/13/19 04/14/19 04/15/19 23:59 23:59 23:59 Weight (kg) 77.111 kg 78 kg Intake & Output: Intake and Output Totals x24h 04/13/19 04/14/19 04/15/19 23:59 23:59 23:59 Intake Total 3433.333 Output Total 200 655 Balance -200 2778.333 - Lab Results Lab Results: 04/15/19 05:15 04/15/19 05:15 Other Lab Results: Lab Results x24hrs 04/15/19 04/15/19 04/14/19 Range/Units 05:15 05:15 21:58 WBC 10.9 H (4.8-10.8) x10^3/uL RBC 3.48 L (4.20-5.40) 10^6/uL Hgb 9.9 L (12.0-16.0) g/dL Hct 31.4 L (37.0-47.0) % MCV 90.2 (81.0-99.0) fL MCH 28.4 (27.0-31.0) pg MCHC 31.5 L (32.0-36.0) g/dL RDW 15.4 H (12.0-15.0) % Plt Count 600 H (130-450) 10^3/uL MPV 8.9 (7.9-10.8) fL Neut # (Auto) 8.1 H (1.5-6.6) 10^3/uL Lymph # (Auto) 1.5 (1.5-3.5) 10^3/uL [place] # (Auto) 1.0 (0.0-1.0) 10^3/uL Eos # (Auto) 0.2 (0.0-0.7) 10^3/uL Baso # (Auto) 0.0 (0.0-0.1) 10^3/uL Absolute Nucleated RBC 0.04 x10^3/uL Nucleated RBC % 0.4 /100WBC Sodium 136 (135-145) mmol/L Potassium 4.2 (3.5-5.0) mmol/L Chloride 104 (101-111) mmol/L Carbon Dioxide 23 (21-32) mmol/L Anion Gap 9.0 (6-13) BUN 11 (6-20) mg/dL Creatinine 0.8 (0.4-1.0) mg/dL Estimated GFR (MDRD) 78 L (>89) Glucose 122 H (70-100) mg/dL Calcium 8.4 L (8.5-10.3) mg/dL Total Bilirubin 0.6 (0.2-1.0) mg/dL AST 49 H (10-42) IU/L ALT 69 H (10-60) IU/L Alkaline Phosphatase 92 (42-121) IU/L Total Protein 6.3 L (6.7-8.2) g/dL Albumin 3.0 L (3.2-5.5) g/dL Globulin 3.3 (2.1-4.2) g/dL Albumin/Globulin Ratio 0.9 L (1.0-2.2) Urine Color YELLOW Urine Clarity CLEAR (CLEAR) Urine pH 5.5 (5.0-7.5) PH Ur Specific [place] 1.025 (1.002-1.030) Urine Protein NEGATIVE (NEGATIVE) mg/dL Urine Glucose (UA) NEGATIVE (NEGATIVE) mg/dL Urine Ketones 15 H (NEGATIVE) mg/dL Urine Occult Blood NEGATIVE (NEGATIVE) Urine Nitrite NEGATIVE (NEGATIVE) Urine Bilirubin NEGATIVE (NEGATIVE) Urine Urobilinogen 0.2 (NORMAL) (NORMAL) E.U./dL Ur Leukocyte Esterase NEGATIVE (NEGATIVE) Ur Microscopic Review NOT INDICATED Urine Culture Comments NOT INDICATED Urine HCG, Qual NEGATIVE - Current Medications Current Medications: Current Medications Generic Name Dose Route Start Last Admin Trade Name Freq PRN Reason Stop Dose Admin Fluoxetine HCl 10 mg 04/15/19 21:00 04/15/19 20:02 Prozac PO 10 mg QPM KIT Administration Hydromorphone HCl 20 mg 04/15/19 01:56 04/15/19 10:40 Dilaudid Power And Recovery Supervisor 20mg/100ml IV 20 mg PRN PRN Administration Abdominal Pain Protocol Hydromorphone HCl 1 mg 04/15/19 03:21 04/15/19 08:35 Dilaudid Inj Carp IVP 1 mg Q1HR PRN Administration PAIN Lactated Ringer's 1,000 mls @ 100 mls/hr 04/15/19 02:00 04/15/19 21:23 Lr IV 0 mls/hr .Q10H KIT Infusion Metronidazole 500 mg in 100 mls @ 100 mls/hr 04/15/19 06:00 04/15/19 21:24 Flagyl 500 Mg/100 Ml IV 100 mls/hr Q8HR KIT Administration Piperacillin Sod/Tazobactam 100 mls @ 200 mls/hr 04/15/19 06:00 04/15/19 20:35 Sod 3.375 gm/ Sodium Chloride IV Infused Q6HR KIT Infusion Ondansetron HCl 4 mg 04/15/19 01:58 04/15/19 05:57 Zofran Inj IVP 4 mg Q6HR PRN Administration Nausea / Vomiting Sodium Chloride 10 ml 04/15/19 09:00 04/15/19 18:57 Normal Saline Flush 0.9% IVP 10 ml 0100,0900,1700 KIT Administration Sodium Chloride 10 ml 04/15/19 01:46 04/15/19 08:36 Normal Saline Flush 0.9% IVP 10 ml PRN PRN Administration NEEDED PER PROVIDER ORDERS - Physical Exam Wound/Incisions: positive: Healing well General Appearance: positive: No acute distress Eyes Bilateral: positive: No lid inflammation, Conjunctivae nml, No scleral icterus ENT: positive: No signs of dehydration Neck: positive: Nml inspection Respiratory: positive: Chest non-tender, No respiratory distress, Breath sounds nml Cardiovascular: positive: Regular rate & rhythm Abdomen: positive: Tenderness (Mild incisional), Abnml bowel sounds (Decreased) Skin: positive: Color nml Extremities: positive: Non-tender, Nml appearance Neurologic/Psychiatric: positive: Oriented x3, Motor nml, Sensation nml, Mood/affect nml ABX Reporting Has patient been on IV antibiotics over the past 48 hours?: Yes Impression/Plan - Problem List Problem List: Postop day #6 status post a splenectomy for recurrent symptomatic splenic cyst Dr. Lou had admitted this patient and let me know about the admission so that I could see her. The pathology was discussed with her as this was a benign cyst and there is no evidence of malignancy. Additionally, somewhat late the amylase return on her drain fluid and it is normal. She is developing the thrombocytosis which is expected following a splenectomy. Intervention will not be forthcoming unless numbers go over 1 million. She is markedly improved with administration of IV fluids and pain medication. I would like to see the drain output decreased to less than 100 prior to removal. Late this afternoon she started passing gas and feels markedly better. For right now continue with the IV antibiotics a little is a little bit unclear as to what exactly is being treated. There is some question whether or not there is some atelectasis lung films but she does not have a fever or green purulence so I do not believe that she has developed a pneumonia. She also does not have any dysuria so a urinary tract infection is unlikely. I will reevaluate her tomorrow and if she continues to have bowel function, she is tolerating p.o. intake, and her pain is controlled we can consider discharge. Dragon disclaimer: This document was created in part using voice recognition technology. Because of the inherent limitations of the system ([employer] user manual states that the licensee understands that speech recognition is a statistical pr ocess and that recognition errors are inherent in the process), occasional same sounding word substitutions and grammatical errors do occur and persist despite proofreading. Please read this document for context.
[2019-04-16] MEDS: PIPERACILLIN/TAZOBACTAM 3.375 GM in SODIUM CHLORIDE 0.9% MINIBAG 100 ML IV SCH ×3 (01:15→12:34)
[2019-04-16] MEDS: metroNIDAZOLE 500 MG/100 ML 500 MG/100 ML BAG IV SCH ×2 (05:15→15:00)
[2019-04-16] MEDS: LACTATED RINGERS 1,000 ML IV SCH ×2 (06:42→12:35)
[2019-04-16] MEDS: SODIUM CHLORIDE FLUSH 0.9% 10 ML SYRINGE IVP SCH ×2 (06:49→07:55)
[2019-04-16] MEDS ORDERED: BECLOMETHASONE 40 MCG INH SCH (07:00)
[2019-04-16] MEDS ORDERED: ALBUTEROL NEB 2.5 MG/3 ML INH PRN (07:37)
[2019-04-16] MEDS ORDERED: E ESTRADIOL E ESTRAD PO SCH (09:00)
[2019-04-16] MEDS ORDERED: BUDESONIDE 0.5 MG/2 ML NEB INH SCH (09:00)
[2019-04-16] MEDS ORDERED: NORGEST PO SCH (09:00)
[2019-04-16] MEDS ORDERED: oxyCODONE 5 MG TABLET PO PRN (11:47)
--- NOTE | 2019-04-16 15:51 | DISCHARGE SUMMARY ---
"Discharge Summary Admit Date: 04/14/19 Discharge Date: 04/16/19 Discharging Provider: Juan C Rodriguez MD Code Status: Attempt Resuscitation Condition at Discharge: Good Discharge Disposition: 01 Home, Self Care - DIAGNOSES Admission Diagnoses: Weakness and nausea Discharge Diagnoses with Status of Each Condition: Improved. - HPI History of Present Illness: 43 year old female who had an open splenectomy for recurrent painful splenic cyst on April 08. Went home ambulating, eating, bowel function, pain controlled. Returned to ED 5 days postop with complaints above. Was admitted to hospital by Dr. Lou and started on IVF hydration, antibiotics and antinausea medication with excellent clinical response. Patient feels markedly better today and wishes to go home. - CONSULTS | PROCEDURES Consultations: None Procedures: None - ALLERGIES Allergies/Adverse Reactions: Allergies Allergy/AdvReac Type Severity Reaction Status Date / Time No Known Drug Allergies Allergy Verified 04/14/19 21:12 - MEDICATIONS Home Medications: Ambulatory Orders Medication Instructions Recorded Confirmed Albuterol Sulfate [Ventolin Hfa] 1 puffs INH Q4HR PRN 05/24/15 04/14/19 Cyclobenzaprine [Flexeril] 2.5 mg PO DAILY PRN #0 tablet 02/11/17 04/15/19 Beclomethasone Dipropionate [Qvar 1 puffs INH BID 04/07/19 04/15/19 Redihaler (40 mcg)] Clindamycin Phosphate 1 applic TP BID PRN 04/07/19 04/15/19 FLUoxetine [PROzac] 10 mg PO QPM 04/07/19 04/15/19 l-Norgest/E.estradiol-E.estrad 1 tab PO DAILY 04/15/19 04/15/19 [Camrese 0.15-0.03-0.01 mg Tab] Home Medications Other | Comments: I will send her home with some Zofran for any occasional nausea. - PHYSICAL EXAM AT DISCHARGE General Appearance: positive: No acute distress Eyes Bilateral: positive: No lid inflammation, Conjunctivae nml, No scleral icterus ENT: positive: No signs of dehydration Neck: positive: Trachea midline Respiratory: positive: Chest non-tender, No respiratory distress, Breath sounds nml Cardiovascular: positive: Regular rate & rhythm Abdomen: positive: Non-tender, Nml bowel sounds, Other (I removed the drain which had serous fluid in it. Patient tolerated this well.) Skin: positive: Color nml Extremities: positive: Non-tender, Nml appearance Neurologic/Psychiatric: positive: Oriented x3, Motor nml, Sensation nml, Mood/affect nml - LABS Result Diagrams: 04/15/19 05:15 04/15/19 05:15 - DIAGNOSTIC IMAGING Diagnostic Imaging Results: Final report reviewed - QUALITY (Female Hip Fx Only) Was patient sent home on osteoporosis medication?: No - FOLLOW UP Follow Up: Juan C Rodriguez MD in 7-10 days - TIME SPENT Time Spent in Discharge (Minutes): 45"
--- NOTE | 2019-04-16 16:04 | Discharge Plan ---
Discharge Plan Problem Reviewed?: Yes Disposition: Home, Self Care Condition: Good Prescriptions: Ondansetron HCl [Zofran] 4 mg PO Q6H #8 tablet Diet: Regular Activity Restrictions: No Restrictions Shower Restrictions: No Driving Restrictions: Yes (Until seen in office.) Weight Bearing: Full Weight Instruction Topics: Ileus Additional Instructions or Follow Up instructions: Call with ANY surgical questions or concerns. Expect some drainage from drain hole. Should dry up in the next 48 hours. No Smoking: If you smoke, Please STOP! Call for help. Follow-up with: Cynthia Reid PA-C [Primary Care Provider] - Juan C Rodriguez MD [Provider Admit Priv/Credential] -
[2019-04-16 16:42] VITALS: BP 121/57
== END 2019-04-16 16:45 | disposition home or self-care (01) ==
LOC: EDUNIT# → ED 21:03 → MS2 04-15 01:46
PROVIDERS: ADMIT Surgery; ATTEND Surgery
DX: R11.0 Nausea (principal); R53.1 Weakness; D47.3 Essential (hemorrhagic) thrombocythemia; J45.990 Exercise induced bronchospasm; K21.9 Gastro-esophageal reflux disease without esophagitis; F32.9 Major depressive disorder, single episode, unspecified; F41.0 Panic disorder [episodic paroxysmal anxiety]; F42.9 Obsessive-compulsive disorder, unspecified; E78.5 Hyperlipidemia, unspecified; K59.00 Constipation, unspecified; J30.2 Other seasonal allergic rhinitis; H54.7 Unspecified visual loss; Z90.81 Acquired absence of spleen; Z79.51 Long term (current) use of inhaled steroids; Z87.19 Personal history of other diseases of the digestive system
CPT/HCPCS: 36415; 74177; 80053; 81003; 81025; 83690; 85025; 96361; 96365; 96366; 96375; 96376; 99284; 99285; A9270; G0378; J1170; J7120; Q9967; 81001; 87086

== ENCOUNTER 2019-06-24 10:50 | Outpatient (CLI) | payer OTHER ==
[2019-06-24 17:26] LABS: BASOPHILS # (AUTO) 0.1 10^3/uL (0.0-0.1); BASOPHILS % (AUTO) 0.7 %; EOSINOPHILS # (AUTO) 0.2 10^3/uL (0.0-0.7); EOSINOPHILS % (AUTO) 1.5 %; HGB - HEMOGLOBIN 10.6 g/dL (12.0-16.0); LYMPHOCYTES # (AUTO) 2.3 10^3/uL (1.5-3.5); LYMPHOCYTES % (AUTO) 19.4 %; MEAN CORPUSCULAR VOLUME 86.5 fL (81.0-99.0); MONOCYTES # (AUTO) 0.9 10^3/uL (0.0-1.0); MONOCYTES % (AUTO) 7.5 %; NEUTROPHILS # (AUTO) 8.2 10^3/uL (1.5-6.6); NEUTROPHILS % (AUTO) 70.4 %; PLT - PLATELET COUNT 639 10^3/uL (130-450); RED BLOOD COUNT 4.08 10^6/uL (4.20-5.40); RED CELL DISTRIBUTION WIDTH 16.8 % (12.0-15.0); WHITE BLOOD COUNT 11.7 x10^3/uL (4.8-10.8)
[2019-06-24 17:48] LABS: ALBUMIN/GLOBULIN RATIO 1.1 (1.0-2.2); ALKALINE PHOSPHATASE 46 IU/L (42-121); ALT ALANINE AMINOTRANSFERASE 17 IU/L (10-60); AST ASPARTATE AMINOTRANSFERASE 19 IU/L (10-42); BILIRUBIN,TOTAL 0.6 mg/dL (0.2-1.0); BUN - BLOOD UREA NITROGEN 19 mg/dL (6-20); CALCIUM 8.9 mg/dL (8.5-10.3); CARBON DIOXIDE - CO2 22 mmol/L (21-32); CHLORIDE 106 mmol/L (101-111); CHOL/HDL RATIO 4.5 (<4.4); CHOLESTEROL 313 mg/dL; CREATININE 0.9 mg/dL (0.4-1.0); GFR - MDRD 68 (>89); GLUCOSE 101 mg/dL (70-100); HDL CHOLESTEROL 70 mg/dL; LDL CHOLESTEROL,CALCULATED 205 mg/dL; LDL/HDL RATIO 2.9 (<4.4); SODIUM 137 mmol/L (135-145); TOTAL PROTEIN 7.8 g/dL (6.7-8.2); VLDL CHOLESTEROL 38 mg/dL
== END 2019-06-24 10:51 | disposition home or self-care (01) ==
LOC: LAB.S 10:50
PROVIDERS: ATTEND Physician Assistant Medical
DX: Z51.81 Encounter for therapeutic drug level monitoring (principal); Z79.899 Other long term (current) drug therapy; E78.5 Hyperlipidemia, unspecified
CPT/HCPCS: 36415; 80053; 80061; 83721; 85025

== ENCOUNTER 2019-09-06 13:08 | Outpatient (CLI) | payer OTHER | END 2019-09-06 23:59 | disposition home or self-care (01) | LOC: LAB.R 13:08 | PROVIDERS: ATTEND Registered Nurse | DX: R19.7 Diarrhea, unspecified (principal) | CPT/HCPCS: 87045; 87046; 87177; 87209 ==

== ENCOUNTER 2020-03-10 08:00 | Outpatient (CLI) | payer OTHER ==
--- NOTE | 2020-03-10 16:35 | XRAY Report ---
PROCEDURE: Ankle 3 View LT INDICATIONS: PAIN IN ANKLE AND FOOT, LEFT TECHNIQUE: 3 views of the ankle were acquired. COMPARISON: None FINDINGS: Bones: No fractures or dislocations. Ankle mortise is normally aligned. No suspicious bony lesions . Soft tissues: No tibiotalar joint effusion. Achilles tendon appears normal. IMPRESSION: No acute finding. Reviewed by: João Richards MD on 03/10/2020 4:34 PM PDT Approved by: João Richards MD on 03/10/2020 4:34 PM PDT Station ID: [id number]
--- NOTE | 2020-03-10 16:36 | XRAY Report ---
PROCEDURE: Foot 3 View LT INDICATIONS: PAIN IN ANKLE AND FOOT, LEFT TECHNIQUE: 3 views of the foot were acquired. COMPARISON: None FINDINGS: Bones: No fractures or dislocations. No suspicious bony lesions. Mild early osteophytic changes of the left first MTP. No degenerative changes otherwise. Soft tissues: No tibiotalar joint effusion. Achilles tendon appears normal. IMPRESSION: No acute finding. Reviewed by: João Richards MD on 03/10/2020 4:34 PM PDT Approved by: João Richards MD on 03/10/2020 4:34 PM PDT Station ID: [id number]
== END 2020-03-10 23:59 | disposition home or self-care (01) ==
LOC: DI.S 08:00
PROVIDERS: ATTEND Physician Assistant Medical
DX: M25.572 Pain in left ankle and joints of left foot (principal)

== ENCOUNTER 2020-05-22 19:20 | Emergency (ER) | payer MEDICAID, OTHER ==
[2020-05-22] MEDS ORDERED: cefTRIAXone 1 GM VIAL IM STA (19:44)
[2020-05-22] MEDS ORDERED: LIDOCAINE 1% 2 ML VIAL MC ONE (19:44)
[2020-05-22] MEDS ORDERED: CIPROFLOXACIN 250 MG TABLET PO STA (19:44)
--- NOTE | 2020-05-22 19:49 | ED Physician Documentation ---
History of Present Illness - Stated complaint Stated Complaint: FEVER,SWELLING,DIFFICULTY BREATHING - Chief complaint Chief Complaint: Resp - History obtained from History obtained from: Patient - History of Present Illness Timing: Today Pain level max: 2 Pain level now: 2 - Additonal information Additional information: 44-year-old female presents to the emergency department stating that she noticed redness and swelling to the bilateral aspects of her neck as well as pustules on her back that started today. Nothing makes it better or worse. No difficulty breathing or swallowing. no new detergents or medications. Did use a hot tub approximately 2 weeks ago. Review of Systems Constitutional: denies: Fever, Chills Respiratory: denies: Cough GI: denies: Vomiting, Diarrhea Skin: denies: Rash Musculoskeletal: denies: Neck pain, Back pain Neurologic: denies: Headache PD PAST MEDICAL HISTORY - Past Medical History Cardiovascular: None Respiratory: Asthma Neuro: None Endocrine/Autoimmune: None GI: GERD, Other : None HEENT: Chronic vision loss Psych: Depression, Anxiety, Panic attacks, Obsessive compulsive disorder Musculoskeletal: None Derm: None - Past Surgical History Past Surgical History: No General: Splenectomy Derm: Skin cancer surgery - Present Medications Home Medications: Ambulatory Orders Medication Instructions Recorded Confirmed Albuterol Sulfate [Ventolin Hfa] 1 puffs INH Q4HR PRN 05/24/15 05/22/20 FLUoxetine [PROzac] 10 mg PO QPM 04/07/19 05/22/20 l-Norgest/E.estradiol-E.estrad 1 tab PO DAILY 04/15/19 05/22/20 [[place] 0.15-0.03-0.01 mg Tab] Ciprofloxacin HCl [Cipro] 500 mg PO BID #20 tablet 05/22/20 Sulfamethox/Trimeth 800/160 1 tab PO BID #20 tablet 05/22/20 [Bactrim Ds 800/160] - Allergies Allergies/Adverse Reactions: Allergies Allergy/AdvReac Type Severity Reaction Status Date / Time No Known Drug Allergies Allergy Verified 05/22/20 19:28 - Social History Does the pt smoke?: No Smoking Status: Never smoker Does the pt drink ETOH?: No Does the pt have substance abuse?: No - Immunizations Immunizations are current?: Yes - POLST Patient has POLST: No PD ED PE NORMAL - Vitals Vital signs reviewed: Yes - General General: Alert and oriented X 3, No acute distress - HEENT HEENT: Moist mucous membranes, Pharynx benign (Normal oropharyngeal exam.) - Neck Neck: Supple, no meningeal sign - Cardiac Cardiac: RRR, Strong equal pulses - Respiratory Respiratory: No respiratory distress, Clear bilaterally - Abdomen Abdomen: Soft, Non tender, Non distended - Derm Derm: Warm and dry, Other (Pustules to the posterior aspect of the neck and upper back. Cellulitis to the bilateral aspects of the neck as well. No drainable abscess) - Neuro Neuro: Alert and oriented X 3 - Psych Psych: Normal mood, Normal affect Results - Vitals Vitals: Vital Signs - 24 hr 05/22/20 05/22/20 19:28 20:30 Temperature 36.6 C 36.5 C Heart Rate 86 70 Respiratory 16 16 Rate Blood Pressure 155/86 H 132/81 H O2 Saturation 99 100 Oxygen O2 Source Room air PD MEDICAL DECISION MAKING - ED course Complexity details: considered differential, d/w patient ED course: Patient with what appears to be folliculitis causing cellulitis. We will place on antibiotics for home. Possibly caused by the recent hot tub exposure? No evidence of anaphylaxis. No stridor. No wheezing. No cough. Patient counseled regarding signs and symptoms for which I believe and urgent re- evaluation would be necessary. Patient with good understanding of and agreement to plan and is comfortable going home at this time This document was made in part using voice recognition software. While efforts are made to proofread this document, sound alike and grammatical errors may occur. Departure - Departure Disposition: 01 Home, Self Care Clinical Impression: Folliculitis Cellulitis Qualifiers: Site of cellulitis: unspecified site Qualified Code(s): L03.90 - Cellulitis, unspecified Condition: Good Instructions: ED Infec Skin Cellulitis, ED Folliculitis Follow-Up: Robbin Polanco DO [Primary Care Provider] - Within 1 week Prescriptions: Sulfamethox/Trimeth 800/160 [Bactrim Ds 800/160] 1 tab PO BID #20 tablet Ciprofloxacin HCl [Cipro] 500 mg PO BID #20 tablet Comments: take all antibiotics until gone. Return if you worsen. this should improve over the next 24-48 hours. Discharge Date/Time: 05/22/20 20:30
[2020-05-22 20:34] VITALS: BP 132/81
== END 2020-05-22 20:30 | disposition home or self-care (01) ==
LOC: ED 19:20
DX: L01.02 Bockhart's impetigo (principal); L03.221 Cellulitis of neck; Z85.828 Personal history of other malignant neoplasm of skin
CPT/HCPCS: 99283; 99284; A9270

== ENCOUNTER 2021-02-04 16:30 | Outpatient (CLI) | payer OTHER | END 2021-02-04 16:31 | disposition critical access hospital (66) | LOC: EMS 16:30 | DX: R41.0 Disorientation, unspecified (principal) | CPT/HCPCS: A0425; A0429 ==

== ENCOUNTER 2021-02-04 17:11 | Emergency (ER) | payer OTHER ==
[2021-02-04 17:16] LABS: MUDS CUTOFF CONCENTRATIONS CUTOFF CONC BELOW:
[2021-02-04 17:18] LABS: BASOPHILS # (AUTO) 0.2 10^3/uL (0.0-0.1); BASOPHILS % (AUTO) 1.2 %; EOSINOPHILS # (AUTO) 0.1 10^3/uL (0.0-0.7); EOSINOPHILS % (AUTO) 1.1 %; HCT - HEMATOCRIT 35.4 % (37.0-47.0); HGB - HEMOGLOBIN 11.5 g/dL (12.0-16.0); LYMPHOCYTES # (AUTO) 2.4 10^3/uL (1.5-3.5); LYMPHOCYTES % (AUTO) 19.1 %; MEAN CORPUSCULAR HGB CONC 32.5 g/dL (32.0-36.0); MEAN CORPUSCULAR VOLUME 86.1 fL (81.0-99.0); MEAN PLATELET VOLUME 9.1 fL (7.9-10.8); MONOCYTES # (AUTO) 1.1 10^3/uL (0.0-1.0); MONOCYTES % (AUTO) 8.6 %; NEUTROPHILS # (AUTO) 8.6 10^3/uL (1.5-6.6); NEUTROPHILS % (AUTO) 69.7 %; PLT - PLATELET COUNT 583 10^3/uL (130-450); RED BLOOD COUNT 4.11 10^6/uL (4.20-5.40); RED CELL DISTRIBUTION WIDTH 14.9 % (12.0-15.0); WHITE BLOOD COUNT 12.3 x10^3/uL (4.8-10.8)
[2021-02-04 17:22] LABS: CARBOXYHEMOGLOBIN VENOUS 1.4 % (0-1.5); HEMOGLOBIN TOTAL, VENOUS WB 12.7 g/dL (12.0-18.0); METHEMOGLOBIN VENOUS 0.1 % (0-1.5); VBG PH 7.363 (7.31-7.41)
[2021-02-04 17:23] LABS: VBG BASE EXCESS -2.4 mmol/L (-2 - +2); VBG HCO3 22.8 mmol/L (23-28); VBG OXYGEN SATURATION 52.6 % (60-80); VBG TOTAL CO2 24.1 mmol/L (24-29)
[2021-02-04 17:26] LABS: BILIRUBIN,URINE NEGATIVE (NEGATIVE); GLUCOSE, URINE (UA) NEGATIVE (NEGATIVE); KETONES,URINE (UA) NEGATIVE (NEGATIVE); LEUKOCYTE ESTERASE, URINE NEGATIVE (NEGATIVE); NITRITE,URINE NEGATIVE (NEGATIVE); OCCULT BLOOD,URINE NEGATIVE (NEGATIVE); PH,URINE 5.5 PH (5.0-7.5); PROTEIN,URINE NEGATIVE (NEGATIVE); UROBILINOGEN,URINE 0.2 (NORMAL) E.U./dL (NORMAL)
[2021-02-04 17:28] LABS: CLARITY,URINE CLEAR (CLEAR); HCG UR QUAL NEGATIVE
[2021-02-04 17:33] LABS: ACETAMINOPHEN < 10 ug/mL (10-30); ALBUMIN 4.8 g/dL (3.2-5.5); ALBUMIN/GLOBULIN RATIO 1.3 (1.0-2.2); ALKALINE PHOSPHATASE 48 IU/L (42-121); ALT ALANINE AMINOTRANSFERASE 25 IU/L (10-60); AST ASPARTATE AMINOTRANSFERASE 27 IU/L (10-42); BILIRUBIN,TOTAL 1.2 mg/dL (0.2-1.0); BUN - BLOOD UREA NITROGEN 18 mg/dL (6-20); CALCIUM 9.7 mg/dL (8.5-10.3); CARBON DIOXIDE - CO2 23 mmol/L (21-32); CHLORIDE 102 mmol/L (101-111); CREATININE 0.9 mg/dL (0.4-1.0); ETOH - ETHANOL < 5.0 mg/dL; GFR - MDRD 67 (>89); GLUCOSE 94 mg/dL (70-100); LIPASE 35 U/L (22-51); POTASSIUM 4.1 mmol/L (3.5-5.0); SALICYLATE < 6.0 mg/dL; SODIUM 137 mmol/L (135-145); TOTAL PROTEIN 8.6 g/dL (6.7-8.2)
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
[2021-02-04 17:48] LABS: AMPHETAMINE SCREEN,URINE NEGATIVE (NEGATIVE); BARBITURATE SCREEN,UR NEGATIVE (NEGATIVE); BENZODIAZEPINES SCREEN, URINE NEGATIVE (NEGATIVE); COCAINE SCREEN URINE NEGATIVE (NEGATIVE); METHADONE SCREEN, URINE NEGATIVE (NEGATIVE); METHAMPHETAMINES SCREEN, URINE NEGATIVE (NEGATIVE); OPIATE SCREEN, URINE NEGATIVE (NEGATIVE); OXYCODONE SCREEN, URINE NEGATIVE (NEGATIVE); PROPOXYPHENE SCREEN, URINE NEGATIVE (NEGATIVE); THC CANNABINOID SCREEN, URINE NEGATIVE (NEGATIVE); TRICYCLIC ANTIDEPRESSANT,URINE NEGATIVE (NEGATIVE)
[2021-02-04 22:35] LABS: B. PARAPERTUSSIS- RESP PCR PAN NOT DETECTED; B. PERTUSSIS- RESP PCR PANEL NOT DETECTED; C. PNEUMONIAE- RESP PCR PANEL NOT DETECTED; CORONAVIRUS 229E-RESP PCR NOT DETECTED; CORONAVIRUS HKU1-RESP PCR NOT DETECTED; CORONAVIRUS NL63-RESP PCR NOT DETECTED; CORONAVIRUS OC43-RESP PCR NOT DETECTED; HUMAN METAPNEUMOVIRUS NOT DETECTED; INFLUENZA A- RESP PCR PANEL NOT DETECTED; INFLUENZA B - RESP PCR PANEL NOT DETECTED; M. PNEUMONIAE- RESP PCR PANEL NOT DETECTED; PARAINFLUENZA VIRUS 1 NOT DETECTED; PARAINFLUENZA VIRUS 2 NOT DETECTED; PARAINFLUENZA VIRUS 3 NOT DETECTED; PARAINFLUENZA VIRUS 4 NOT DETECTED; RHINOVIRUS/ENTEROVIRUS NOT DETECTED; RSV- RESP PCR PANEL NOT DETECTED; SARS-CoV-2 -RESP PCR PANEL NOT DETECTED
[2021-02-04] MEDS ORDERED: OLANZapine ODT 5 MG TABLET TL ONE (22:57)
[2021-02-04] MEDS ORDERED: OLANZapine 10 MG VIAL IM STA (23:11)
--- NOTE | 2021-02-05 00:21 | ED Physician Documentation ---
Face to Face for Restraints - Immediate Situation Face to Face Evaluation Date: 02/05/21 Face to Face Evaluation Time: 00:18 Restraint Situation: Chemical Patient's Reactions to the Intervention: Compliant, Resting quietly - Behavioral Condition Attitude: Guarded Behavior: Uncooperative Orientation: Person, Place Mood: Angry Behavioral Condition Comments: She is calmer and not threatening now after meds. - Evaluation Review of Systems: No nausea nor vomiting. Normal respirations. Moves all extremities. Not really wanting to follow commands. Pertinent History/Illicit Drugs/Medications/Results: see ER note. - Plan Need to Continue or Terminate Violent or Chemical Restraint: She does not appear to need further medications or interventions at this time. We will maintain close observation of her. No self-harm ideation nor gestures. DCR has found placement for her.
--- NOTE | 2021-02-05 03:01 | ED Physician Documentation ---
ED Addendum - Addendum Addendum: 02/05/21 02:59The patient had been evaluated by DCR and was being hospitalized under an B[facility] due to disability. The patient had had some escalation of pressured speech and aggressiveness that was treated with medication. She is subsequently relaxed and calm and resting on the cart. Placement was found for the patient at one of the psychiatric facilities [place]. However no transportation is available until the morning. At this point the plan is for [place] ambulance to pick her up at 8:30 in the morning for transfer.
[2021-02-05 04:24] VITALS: BP 105/64
== END 2021-02-05 08:13 ==
LOC: EDBD → ED 17:11
DX: F60.0 Paranoid personality disorder (principal); F22 Delusional disorders; Z20.822 Contact with and (suspected) exposure to COVID-19
CPT/HCPCS: 0202U; 36415; 80053; 80306; 80307; 80320; 80329; 81003; 81025; 82375; 82803; 83690; 84443; 85025; 93005; 96372; 99283; 99285; 81001; 87086

== ENCOUNTER 2021-11-01 08:00 | Outpatient (CLI) | payer MEDICAID, OTHER ==
--- NOTE | 2021-11-01 14:28 | XRAY Report ---
PROCEDURE: Cervical Spine 2 View INDICATIONS: CERVICAL RADICULOPATHY TECHNIQUE: 3 view(s) of the cervical spine were acquired. COMPARISON: None. FINDINGS: Bones: No fractures or dislocations to the T1 level. The lateral masses of C1 appear intact on the odontoid view. No suspicious bony lesions. Soft tissues: No prevertebral soft tissue swelling. IMPRESSION: No evidence acute bony abnormality of the cervical spine. If clinical suspicion and/or symptoms persist, further assessment with repeat plain films or advanced imaging (e.g., CT, MRI, or bone scan) may be helpful for further assessment. Reviewed by: Moises Carmichael MD on 11/01/2021 2:27 PM PDT Approved by: Moises Carmichael MD on 11/01/2021 2:27 PM PDT Station ID: [id number]
--- NOTE | 2021-11-01 17:12 | XRAY Report ---
PROCEDURE: Shoulder 3 View RT INDICATIONS: RIGHT SHOULDER PAIN TECHNIQUE: 3 views of the shoulder were acquired. COMPARISON: None. FINDINGS: Bones: No fractures or dislocations. No suspicious bony lesions. Visualized ribs appear intact. Soft tissues: No suspicious soft tissue calcifications. IMPRESSION: No radiographic abnormalities. Reviewed by: Katelyn Mcclellan MD on 11/01/2021 5:11 PM PDT Approved by: Katelyn Mcclellan MD on 11/01/2021 5:11 PM PDT Station ID: [id number]
== END 2021-11-01 23:59 | disposition home or self-care (01) ==
LOC: DI.S 08:00
PROVIDERS: ATTEND Registered Nurse
DX: M25.511 Pain in right shoulder (principal); M54.12 Radiculopathy, cervical region

== ENCOUNTER 2022-01-07 12:08 | Emergency (ER) | payer MEDICAID, OTHER ==
[2022-01-07 12:18] VITALS: BP 165/88
--- OUTSIDE RECORDS SUMMARY | 2022-01-07 12:37 | EXTERNAL MEDICAL SUMMARY RPT | Continuity of Care Document ---
:1975 Author Organization [facility] Address [address] [place] [address] Phone Allergies No information. Encounters No information. Functional Status No information. Immunizations No information. Medications date description facility [id number]+0000 methylprednisolone [facility] [place] [id number]+0000 methylprednisolone [facility] [place] [id number]+0000 tramadol [facility] [place] [id number]+0000 mupirocin [facility] [place] [id number]+0000 mupirocin [facility] [place] [id number]+0000 methocarbamol [facility] [place] [id number]+0000 methocarbamol [facility] [place] [id number]+0000 methocarbamol [facility] [place] [id number]+0000 methocarbamol [facility] [place] [id number]+0000 albuterol sulfate [facility] [place] [id number]+0000 albuterol sulfate [facility] [place] [id number]+0000 methylprednisolone [facility] [place] [id number]+0000 methylprednisolone [facility] [place] [id number]+0000 tramadol [facility] [place] Problems No information. Procedures date description facility [id number] Visit Code Hold [facility] [place] [phone]+0000 Visit Code Hold [facility] [place] [phone]+0000 XR CERVICAL SPINE 2 OR 3 VIEW [facility] [place] [phone]+0000 XR SHOULDER 2-3 VIEW [facility] [place] Results/Labs No information. Social History date description facility [id number] Never smoker [facility] [place] [id number]+0000 Never smoker [facility] [place] [phone]+0000 Never smoker [facility] [place] Vital Signs date measurement value units [id number]+0000 BMI BMI 28.35 kg/m2 78039056692245+0000 BP_diastolic BP_diastolic 68 mm[H g] 37705330454389+0000 BP_systolic BP_systolic 131 mm[Hg] 37823926985821+0000 heart_rate heart_rate 98 /min 20334223056004+0000 height_metric height_metric 167.64 cm 39213141516658+0000 height_standard height_standard 66 in 50839632512005+0000 respiration_rate respiration_rate 16 /min 70429590570795+0000 temperature_metric temperature_metric 36.67 C 56005547089944+0000 temperature_standard temperature_standard 9 8 F 09443995675068+0000 weight_metric weight_metric 79.38 kg 83640599335584+0000 weight_standard weight_standard 175 lb 73484721287671+0000 BMI BMI 28.35 kg/m2 11200018622765+0000 BP_diastolic BP_diastolic 89 mm[H g] 05276606056448+0000 BP_systolic BP_systolic 141 mm[Hg] 08856096200158+0000 heart_rate heart_rate 80 /min 65507952922188+0000 height_metric height_metric 167.64 cm 82603934646327+0000 height_standard height_standard 66 in 82389479389954+0000 respiration_rate respiration_rate 16 /min 14540509438962+0000 temperature_metric temperature_metric 36.11 C 10440625992123+0000 temperature_standard temperature_standard 9 7 F 45072596034394+0000 weight_metric weight_metric 79.38 kg 11902701188103+0000 weight_standard weight_standard 175 lb
--- NOTE | 2022-01-07 12:54 | ED Physician Documentation ---
PD HPI NECK PAIN - Stated complaint Stated Complaint: NECK PAIN - Chief complaint Chief Complaint: Back Pain - History obtained from History obtained from: Patient - Additional information Additional information: 46-year-old woman with history of splenectomy presents for the evaluation of neck pain. She originally hurt it a few months ago at work while lifting. It has gotten better and then gotten worse again. It got worse again about a week and a half ago while pulling a plant out of the ground. It is a sharp pain in the low neck radiating to the right with some numbness in the right hand. She denies weakness. She has been taking an NSAID and a muscle laxer which are helpful, she presents today wondering if she should go back to work at the [employer] without limitation. Review of Systems Constitutional: denies: Fever, Chills, Myalgias, Fatigue Cardiac: denies: Chest pain / pressure, Palpitations Respiratory: denies: Dyspnea, Cough PD PAST MEDICAL HISTORY - Past Medical History Cardiovascular: None Respiratory: Asthma Neuro: None Endocrine/Autoimmune: None GI: GERD, Other : None HEENT: Chronic vision loss Psych: Depression, Anxiety, Panic attacks, Obsessive compulsive disorder Musculoskeletal: None Derm: None - Past Surgical History Past Surgical History: No General: Splenectomy Derm: Skin cancer surgery - Present Medications Home Medications: Ambulatory Orders Medication Instructions Recorded Confirmed Albuterol Sulfate [Ventolin Hfa] 1 puffs INH Q4HR PRN 05/24/15 02/04/21 FLUoxetine [PROzac] 10 mg PO QPM 04/07/19 02/04/21 l-Norgest/E.estradiol-E.estrad 1 tab PO DAILY 04/15/19 02/04/21 [Camrese 0.15-0.03-0.01 mg Tab] Physical Therapy 1 unit TD ONCE #1 01/07/22 - Allergies Allergies/Adverse Reactions: Allergies Allergy/AdvReac Type Severity Reaction Status Date / Time niacin Allergy Rash Verified 01/07/22 12:18 - Social History Does the pt smoke?: No Smoking Status: Never smoker Does the pt drink ETOH?: No Does the pt have substance abuse?: No - Immunizations Immunizations are current?: Yes - POLST Patient has POLST: No PD ED PE NORMAL - Vitals Vital signs reviewed: Yes - General General: Alert and oriented X 3, No acute distress - HEENT HEENT: PERRL, EOMI - Neck Neck: Other (Neck is supple and nontender, she does have audible cracking with range of motion.) - Extremities Extremities: Other (Mild numbness in the right hand that does not follow a dermatomal pattern with equal and normal upper extremity reflexes and strength in composition tile layer strength, interosseous strength, thumb extension, flexion and extension of the wrists.) - Neuro Neuro: Alert and oriented X 3, Normal speech Results - Vitals Vitals: Vital Signs - 24 hr 01/07/22 12:15 Temperature 36.2 C L Heart Rate 79 Respiratory 16 Rate Blood Pressure 165/88 H O2 Saturation 100 Oxygen O2 Source Room air PD MEDICAL DECISION MAKING - ED course ED course: 46-year-old woman presents with an ongoing cervical radiculopathy mostly requesting a work note but it would be reasonable to put her in physical therapy as well. She does not have ready access to primary care follow-up as she is between doctors right now. Consideration given to starting her on steroids but she has a single episode of dayana in the past and after discussion this was declined. Departure - Departure Disposition: 01 Home, Self Care Clinical Impression: Cervical radiculopathy Condition: Good Record reviewed to determine appropriate education?: Yes Instructions: ED Cervical Radiculopathy Follow-Up: Jakob Roy MD [Provider Admit Priv/Credential] - Prescriptions: Physical Therapy 1 unit TD ONCE #1 Comments: You were seen today for an ongoing cervical radiculopathy, a pinched nerve in your neck. I am writing a prescription for physical therapy, and also on-call for emergency department follow-ups for this week is Dr. Roy, his numbers on this form, call for an appointment. Forms: Activity restrictions
== END 2022-01-07 13:02 | disposition home or self-care (01) ==
LOC: ED 12:08
DX: M54.12 Radiculopathy, cervical region (principal)
CPT/HCPCS: 99282

== ENCOUNTER 2022-10-13 14:25 | Emergency (ER) | payer MEDICAID ==
[2022-10-13] MEDS ORDERED: DEXAMETHASONE 10 MG/ML VIAL PO STA (15:25)
[2022-10-13] MEDS ORDERED: CHERRY SYRUP 10 ML UDC PO ONE (15:25)
[2022-10-13] MEDS ORDERED: cephALEXin 250 MG CAPSULE PO STA (15:25)
--- NOTE | 2022-10-13 15:26 | ED Physician Documentation ---
History of Present Illness - Stated complaint Stated Complaint: RASH - Chief complaint Chief Complaint: General - Additonal information Additional information: This is a 46-year-old female who has a past medical history of splenectomy who presents with severely pruritic rash. It started in the right antecubital space has spread essentially to her whole body. Has been present for a couple of days after using a new detergent that she bought for dollars at 71lbs. She also states she used a new shampoo recently. She has been taking Benadryl Frequently to try to alleviate some of the itching but it has not been effective. The blank ent is also on minocycline daily at low doses for infection prevention given her splenectomy and she has been taking "double the dose" the last few days to see if it would help. She is on her feet all day at work and has also noted some substantial right calf pain and swelling over the last few days as well. She denies any concerns for DVT, no recent immobility, no history of DVT or PE, no chest pain or shortness of breath. She believes it is because of the pruritus and scratching at the skin and standing on her feet all day. She states it did improve somewhat when she elevated it at nighttime but she unfortunately has to be on her feet all day at work. Review of Systems Constitutional: reports: Reviewed and negative Nose: reports: Reviewed and negative Throat: reports: Reviewed and negative Cardiac: reports: Reviewed and negative Respiratory: reports: Reviewed and negative GI: reports: Reviewed and negative Skin: reports: Rash, Lesions Musculoskeletal: reports: Extremity swelling. denies: Neck pain, Back pain, Extremity pain, Joint pain, Joint swelling Neurologic: reports: Reviewed and negative Psychiatric: reports: Reviewed and negative PD PAST MEDICAL HISTORY - Past Medical History Past Medical History: Yes Cardiovascular: None Respiratory: Asthma Neuro: None Endocrine/Autoimmune: None GI: GERD, Other : None HEENT: Chronic vision loss Psych: Depression, Anxiety, Panic attacks, Obsessive compulsive disorder Musculoskeletal: None Derm: None - Past Surgical History Past Surgical History: No General: Splenectomy Derm: Skin cancer surgery - Present Medications Home Medications: Ambulatory Orders Medication Instructions Recorded Confirmed Albuterol Sulfate [Ventolin Hfa] 1 puffs INH Q4HR PRN 05/24/15 10/13/22 FLUoxetine [PROzac] 10 mg PO QPM 04/07/19 10/13/22 l-Norgest/E.estradiol-E.estrad 1 tab PO DAILY 04/15/19 10/13/22 [Camrese 0.15-0.03-0.01 mg Tab] Minocycline HCl [Solodyn] 50 mg PO DAILY 10/13/22 10/13/22 OLANZapine [Olanzapine] 5 mg PO DAILY 10/13/22 10/13/22 Triamcinolone 0.1% Oint 1 applic TOP BID #80 gm 10/13/22 cephALEXin [Keflex] 500 mg PO Q6H #28 cap 10/13/22 predniSONE [Deltasone] 40 mg PO DAILY 5 Days #10 tablet 10/13/22 - Allergies Allergies/Adverse Reactions: Allergies Allergy/AdvReac Type Severity Reaction Status Date / Time Latex, Natural Rubber Allergy Rash Verified 10/13/22 14:48 niacin Allergy Rash Verified 10/13/22 14:47 - Social History Does the pt smoke?: No Smoking Status: Never smoker Does the pt drink ETOH?: No Does the pt have substance abuse?: No - Immunizations Immunizations are current?: Yes - POLST Patient has POLST: No PD ED PE NORMAL - Vitals Vital signs reviewed: Yes - General General: Alert and oriented X 3, No acute distress, Well developed/nourished - HEENT HEENT: Atraumatic, Pharynx benign - Neck Neck: Supple, no meningeal sign, No JVD - Cardiac Cardiac: RRR, No murmur, No gallop, No rub - Respiratory Respiratory: No respiratory distress, Clear bilaterally - Abdomen Abdomen: Normal bowel sounds, Soft, Non tender, Non distended - Derm Derm: Other (There is diffuse excoriation with open scratches and scabs on her extremities as well as torso into the neck. There are a few scattered on the scalp, none substantially on the face. There is dry and thickened skin in the right antecubital space and on both lower legs. There is no erythema or puru) - Extremities Extremities: Normal ROM s pain, Other (The right calf is about double the size of the left with very tight skin, it is mildly tender. Pulses are 2+ pedal) - Neuro Neuro: Alert and oriented X 3 Eye Opening: Spontaneous Motor: Obeys Commands Verbal: Oriented GCS Score: 15 - Psych Psych: Normal mood, Normal affect Results - Vitals Vitals: Vital Signs - 24 hr 10/13/22 14:43 Temperature 36.6 C Heart Rate 100 Respiratory 20 Rate Blood Pressure 155/88 H O2 Saturation 100 Oxygen O2 Source Room air - Rads (name of study) No standard instances Relevant Findings:: Prelim report reviewed PD Medical Decision Making - ED course Complexity details: reviewed results, re-evaluated patient, d/w patient ED course: This is a 46-year-old female who presents with a diffuse rash from head to toe as described in HPI, symptoms started after using a new laundry detergent. The rash appears to be a contact dermatitis, and I do not think it is superinfected at this time but patient is at risk given her history therefore I am going to treat with Keflex. She was also given a dose of Decadron here and will discharge her on prednisone. She was advised to discard the detergent as I suspect this is the cause of her symptoms and try to rinse all the things that she was tenderness detergent a second time. She should also ensure she is not using any other new or irritating products. I recommended keeping the skin well moisturized, and she can also apply triamcinolone ointment to the most severe areas. She can continue Benadryl and/or cetirizine or other xofl-uhb-wqtvzef antihistamine for the pruritus. We did obtain a right leg ultrasound To rule out DVT given her significant right leg swelling it is likely due to the excoriation and standing on her feet all day and this was negative. She was advised to try to keep her legs elevated whenever possible to help with the swelling. Return precautions reviewed if any signs of infection or other new concerns Departure - Departure Disposition: 01 Home, Self Care Clinical Impression: Contact dermatitis and eczema due to detergents Condition: Good Instructions: ED Dermatitis Contact Prescriptions: predniSONE [Deltasone] 40 mg PO DAILY 5 Days #10 tablet cephALEXin [Keflex] 500 mg PO Q6H #28 cap Triamcinolone 0.1% Oint 1 applic TOP BID #80 gm Comments: You presented with a diffuse rash. I suspect this is secondary to the new detergent you used. Please discard this detergent and try to double rinse everything that you have washed with it. Try to use a hypoallergenic detergent or a detergent for sensitive skin. I have prescribed you a short course of steroids to help with your itchiness as well as a topical steroid to apply to the most pruritic/itchy areas. I have also given you a 7-day course of antibiotics to use. You can continue to use Benadryl as needed for the itchiness.
--- NOTE | 2022-10-13 16:55 | Ultrasound Report ---
PROCEDURE: Duplex Ext Veins Right INDICATIONS: right leg pain/swelling, pls evaluate for DVT TECHNIQUE: Real-time imaging, as well as color and pulse Doppler interrogation, were performed of the lower extr emity deep veins from the inguinal ligament to the popliteal fossa. COMPARISON: None. FINDINGS: The deep veins are normally compressible, and free of intraluminal thrombus. Color and pu lse Doppler demonstrate normal phasic intraluminal flow. There is normal augmentation response to di stal compression maneuver. A prominent right groin lymph node can be seen. This study is limited by body habitus. IMPRESSION: No findings of deep venous thrombosis are seen. Note: Concordant preliminary findings given by the electric blasting cap assembler upon the completion of the examination to the nurse caring for this patient. Reviewed by: Cody Ovalle MD on 10/13/2022 3:54 PM DELIA Approved by: Cody Ovalle MD on 10/13/2022 3:54 PM DELIA Station ID: [id number]
[2022-10-13 17:10] VITALS: BP 148/89
== END 2022-10-13 17:34 | disposition home or self-care (01) ==
LOC: ED 14:25
DX: L24.0 Irritant contact dermatitis due to detergents (principal); Z79.899 Other long term (current) drug therapy; Z79.3 Long term (current) use of hormonal contraceptives
CPT/HCPCS: 93971; 99284; A9270

== ENCOUNTER 2024-03-04 07:00 | Outpatient (CLI) | payer MEDICAID | END 2024-03-04 23:59 | disposition home or self-care (01) | LOC: LAB.S 07:00 | PROVIDERS: ATTEND Registered Nurse | DX: R30.0 Dysuria (principal) | CPT/HCPCS: 87086 ==

== ENCOUNTER 2024-03-25 03:40 | Emergency (ER) | payer MEDICAID ==
--- NOTE | 2024-03-25 03:53 | ED Physician Documentation ---
History of Present Illness - Stated complaint Stated Complaint: ALLERGIC REACTION - Chief complaint Chief Complaint: Allergic Rx - History obtained from History obtained from: Patient - Additonal information Additional information: HPI from patient. Patient c/o painful FB sensation to right eye, waking him from sleep approximately 2 hours [employer]. No injury, does not recall anything entering the eye during the day. Wears glasses but not contact lenses. Denies h/o similar symptoms. has had watery d/c since symptom onset but denies visual changes PD PAST MEDICAL HISTORY - Past Medical History Past Medical History: Yes Cardiovascular: None Respiratory: Asthma Neuro: None Endocrine/Autoimmune: None GI: GERD, Other : None HEENT: Chronic vision loss Psych: Depression, Anxiety, Panic attacks, Obsessive compulsive disorder Musculoskeletal: None Derm: None - Past Surgical History Past Surgical History: No General: Splenectomy Derm: Skin cancer surgery - Present Medications Home Medications: Ambulatory Orders Medication Instructions Recorded Confirmed Albuterol Sulfate [Ventolin Hfa] 1 puffs INH Q4HR PRN 05/24/15 10/13/22 FLUoxetine [PROzac] 10 mg PO QPM 04/07/19 10/13/22 l-Norgest/E.estradiol-E.estrad 1 tab PO DAILY 04/15/19 10/13/22 [Camrese 0.15-0.03-0.01 mg Tab] Minocycline HCl [Solodyn] 50 mg PO DAILY 10/13/22 10/13/22 OLANZapine [Olanzapine] 5 mg PO DAILY 10/13/22 10/13/22 Triamcinolone 0.1% Oint 1 applic TOP BID #80 gm 10/13/22 cephALEXin [Keflex] 500 mg PO Q6H #28 cap 10/13/22 predniSONE [Deltasone] 40 mg PO DAILY 5 Days #10 tablet 10/13/22 Albuterol Sulf [Ventolin Hfa 1 - 2 puffs INH Q4HR PRN #1 each 03/25/24 Inhaler] Doxycycline [Vibramycin] 100 mg PO BID #14 tablet 03/25/24 predniSONE [Deltasone] 40 mg PO DAILY 4 Days #8 tablet 03/25/24 - Allergies Allergies/Adverse Reactions: Allergies Allergy/AdvReac Type Severity Reaction Status Date / Time Latex, Natural Rubber Allergy Rash Verified 03/25/24 03:52 niacin Allergy Rash Verified 03/25/24 03:52 - Social History Does the pt smoke?: No Smoking Status: Never smoker Does the pt drink ETOH?: No Does the pt have substance abuse?: No - Immunizations Immunizations are current?: Yes - POLST Patient has POLST: No PD ED PE NORMAL - Vitals Vital signs reviewed: Yes - General General: Alert and oriented X 3, No acute distress, Well developed/nourished PD ED PE EXPANDED - Eyes Eyes: Right eye, Normal eyelids, Injected conj/sclera, Corneal abrasion, Fluorescein uptake, Anterior chambers clear Results - Vitals Vitals: Vital Signs - 24 hr 03/25/24 03/25/24 03:40 04:35 Temperature 37.0 C Heart Rate 78 88 Respiratory 18 14 Rate Blood Pressure 134/101 H O2 Saturation 100 100 Oxygen O2 Source Room air PD Medical Decision Making - ED course Complexity details: considered differential, d/w patient Departure - Departure Disposition: 01 Home, Self Care Clinical Impression: Allergic reaction Condition: Good Instructions: ED Allergic Reaction General Other Prescriptions: Albuterol Sulf [Ventolin Hfa Inhaler] 1 - 2 puffs INH Q4HR PRN #1 each PRN Reason: Shortness Of Air/Wheezing predniSONE [Deltasone] 40 mg PO DAILY 4 Days #8 tablet Doxycycline [Vibramycin] 100 mg PO BID #14 tablet Comments: Your facial swelling and redness is suggestive of an allergic reaction, although it is not apparent what is causing this at this time. You were given 60 mg of prednisone (steroid) in the emergency department, and I am providing you with a prescription for 4 more days of a slightly lower dose (40 mg). You should also take an zrle-kjx-eaoszlk anti-histamine medication such as Claritin or Benadryl, for the facial swelling as well as to help with the itching of the rash (follow label instructions regarding dosing). Because some of the lesions on your legs appear to be in the early stages of infection, and considering that you have a splenectomy (making it harder to fight off bacterial infection), you were also given the first dose of antibiotic (doxycycline) in the emergency department and I am providing you with a prescription for a 1-week course of this antibiotic, as well. Discharge Date/Time: 03/25/24 04:35
[2024-03-25 03:55] VITALS: BP 134/101; O2SAT 100
[2024-03-25] MEDS: predniSONE 20 MG TABLET PO STA (04:28)
[2024-03-25] MEDS: DOXYCYCLINE 100 MG TABLET PO STA (04:28)
--- NOTE | 2024-03-25 08:31 | ED Physician Documentation ---
History of Present Illness - Stated complaint Stated Complaint: ALLERGIC REACTION - Chief complaint Chief Complaint: Allergic Rx - History obtained from History obtained from: Patient - Additonal information Additional information: HPI from patient, Patient's chief complaint is facial erythema, swelling, and pruritis since last night. no inciting event such as sting or new medication. she denies dyspnea, wheezing. denies h/o similar symptoms. she also notes ongoing, mildly pruritic BLE rash x several weeks. She says she was diagnosed with scabies and rx permethrin but had allergic reaction to this (manifest as throat swelling and sensation of throat "closing"), and thus when rash persisted, she was given a dose of ivermectin which she took approximately 2 weeks ago with modest improvement. Review of Systems Constitutional: reports: Reviewed and negative Cardiac: reports: Reviewed and negative Respiratory: reports: Reviewed and negative GI: reports: Reviewed and negative Skin: reports: Rash PD PAST MEDICAL HISTORY - Past Medical History Past Medical History: Yes Cardiovascular: None Respiratory: Asthma Neuro: None Endocrine/Autoimmune: None GI: GERD, Other : None HEENT: Chronic vision loss Psych: Depression, Anxiety, Panic attacks, Obsessive compulsive disorder Musculoskeletal: None Derm: None - Past Surgical History Past Surgical History: No General: Splenectomy Derm: Skin cancer surgery - Present Medications Home Medications: Ambulatory Orders Medication Instructions Recorded Confirmed Albuterol Sulfate [Ventolin Hfa] 1 puffs INH Q4HR PRN 05/24/15 10/13/22 FLUoxetine [PROzac] 10 mg PO QPM 04/07/19 10/13/22 l-Norgest/E.estradiol-E.estrad 1 tab PO DAILY 04/15/19 10/13/22 [Camrese 0.15-0.03-0.01 mg Tab] Minocycline HCl [Solodyn] 50 mg PO DAILY 10/13/22 10/13/22 OLANZapine [Olanzapine] 5 mg PO DAILY 10/13/22 10/13/22 Triamcinolone 0.1% Oint 1 applic TOP BID #80 gm 10/13/22 cephALEXin [Keflex] 500 mg PO Q6H #28 cap 10/13/22 predniSONE [Deltasone] 40 mg PO DAILY 5 Days #10 tablet 10/13/22 Albuterol Sulf [Ventolin Hfa 1 - 2 puffs INH Q4HR PRN #1 each 03/25/24 Inhaler] Doxycycline [Vibramycin] 100 mg PO BID #14 tablet 03/25/24 predniSONE [Deltasone] 40 mg PO DAILY 4 Days #8 tablet 03/25/24 - Allergies Allergies/Adverse Reactions: Allergies Allergy/AdvReac Type Severity Reaction Status Date / Time Latex, Natural Rubber Allergy Rash Verified 03/25/24 03:52 niacin Allergy Rash Verified 03/25/24 03:52 - Social History Does the pt smoke?: No Smoking Status: Never smoker Does the pt drink ETOH?: No Does the pt have substance abuse?: No - Immunizations Immunizations are current?: Yes - POLST Patient has POLST: No PD ED PE NORMAL - Vitals Vital signs reviewed: Yes - General General: Alert and oriented X 3, No acute distress, Well developed/nourished - HEENT HEENT: Other - Neck Neck: No bony TTP (moderate generalized facial swelling and erythema, diffuse and symmetric) - Cardiac Cardiac: RRR, No murmur - Respiratory Respiratory: No respiratory distress, Clear bilaterally - Abdomen Abdomen: Soft, Non tender - Extremities Extremities: No edema - Neuro Neuro: Alert and oriented X 3 PD ED PE EXPANDED - Derm Derm: Pick rosa, Other (BLE (R>L) scattered 2-3mm pick rosa, some with shallow ulcerations and few with trace surrounding erythema. markedly fewer on posterior aspects (almost none), few on BUE, and none on back) Results - Vitals Vitals: Vital Signs - 24 hr 03/25/24 03/25/24 03:40 04:35 Temperature 37.0 C Heart Rate 78 88 Respiratory 18 14 Rate Blood Pressure 134/101 H O2 Saturation 100 100 Oxygen O2 Source Room air PD Medical Decision Making - ED course Complexity details: considered differential, d/w patient ED course: given 60mg prednisone for facial swelling and erythema that appears to be allergic reaction although no apparent etiology. drove to ED so not given antihistamine but advised to start taking one (such as benadryl or claritin) this morning as soon as she can buy one and to follow label instructions. provided rx for 4 days of QD 40mg prednisone. also given 100 mg doxycycline, as some of the leg lesions have mild surrounding erythema concerning for early bacterial infection (and patient is asplenic, raising risk of infection from encapsulated organisms), and provided one week course of doxycycline. as for the rash, it does not appear c/w scabies (large ulcerative pick rosa on anterior surfaces of legs, less on arms, and none in areas difficult to reach such as most of her back). almost appears to be in same distribution of hair follicles on legs, so possibly folliculitis. advised to seek follow up with dermatology if can be arranged, otherwise with PCP next available appointment appointments Departure - Departure Disposition: 01 Home, Self Care Clinical Impression: Allergic reaction Qualifiers: Encounter type: initial encounter Qualified Code(s): T78.40XA - Allergy, unspecified, initial encounter Condition: Good Instructions: ED Allergic Reaction General Other Prescriptions: Albuterol Sulf [Ventolin Hfa Inhaler] 1 - 2 puffs INH Q4HR PRN #1 each PRN Reason: Shortness Of Air/Wheezing predniSONE [Deltasone] 40 mg PO DAILY 4 Days #8 tablet Doxycycline [Vibramycin] 100 mg PO BID #14 tablet Comments: Your facial swelling and redness is suggestive of an allergic reaction, although it is not apparent what is causing this at this time. You were given 60 mg of prednisone (steroid) in the emergency department, and I am providing you with a prescription for 4 more days of a slightly lower dose (40 mg). You should also take an [id number] anti-histamine medication such as Claritin or Benadryl, for the facial swelling as well as to help with the itching of the rash (follow label instructions regarding dosing). Because some of the lesions on your legs appear to be in the early stages of infection, and considering that you have a splenectomy (making it harder to fight off bacterial infection), you were also given the first dose of antibiotic (doxycycline) in the emergency department and I am providing you with a prescription for a 1-week course of this antibiotic, as well. Discharge Date/Time: 03/25/24 04:35
== END 2024-03-25 04:35 | disposition home or self-care (01) ==
LOC: ED 03:40
DX: T78.40XA Allergy, unspecified, initial encounter (principal)
CPT/HCPCS: 99283; 99284; A9270; J7512